=== PATIENT | female | born 1970 | race Caucasian/White ===

== ENCOUNTER 2018-08-08 09:48 | Emergency (ER) | payer OTHER ==
[2018-08-08 11:05] LABS: BASO % 0.4 % (0.0-1.0); EOS % 0.7 % (0.0-3.0); HEMATOCRIT 38.2 % (36.0-47.0); HEMOGLOBIN 12.9 g/dl (12.0-15.5); IMMATURE GRANULOCYTE % 0.4 % (0-3.0); LYMPH # 0.7 10^3/uL (1.5-4.5); LYMPH % 15.2 % (24.0-44.0); MEAN CORPUSCULAR HEMOGLOBIN 30.4 pg (27.0-33.0); MEAN CORPUSCULAR HGB CONC 33.8 g/dl (32.0-36.5); MEAN CORPUSCULAR VOLUME 89.9 fl (80.0-96.0); MONO # 0.4 10^3/uL (0.0-0.8); MONO % 9.7 % (0.0-5.0); NEUTROPHILS # 3.3 10^3/uL (1.8-7.7); NEUTROPHILS % 73.6 % (36.0-66.0); PLATELET COUNT, AUTOMATED 288 10^3/uL (150-450); RED BLOOD COUNT 4.25 10^6/uL (4.00-5.40); RED CELL DISTRIBUTION WIDTH 12.1 % (11.5-14.5); WHITE BLOOD COUNT 4.5 10^3/uL (4.0-10.0)
[2018-08-08 11:14] LABS: INR 0.97; PARTIAL THROMBOPLASTIN TIME 27.4 SECONDS (25.4-37.6)
[2018-08-08 11:22] LABS: D-DIMER QUANT < 270.0 ng/ml (<500)
[2018-08-08 11:32] LABS: ALBUMIN 3.7 GM/DL (3.2-5.2); ALBUMIN/GLOBULIN RATIO 1.23 (1.00-1.93); ALKALINE PHOSPHATASE 71 U/L (45-117); ALT/SGPT 21 U/L (12-78); ANION GAP 7 MEQ/L (8-16); AST/SGOT 12 U/L (7-37); BILIRUBIN,DIRECT < 0.1 MG/DL (0.0-0.2); BILIRUBIN,TOTAL 0.2 MG/DL (0.2-1.0); BLOOD UREA NITROGEN 20 MG/DL (7-18); CARBON DIOXIDE LEVEL 26 MEQ/L (21-32); CHLORIDE LEVEL 106 MEQ/L (98-107); CK-MB VALUE MASS < 1.0 NG/ML (<3.6); CPK CREATINE PHOSPHOKINASE 57 U/L (26-192); CREATININE FOR GFR 0.76 MG/DL (0.55-1.30); FREE T4 1.24 NG/DL (0.76-1.46); GLOMERULAR FILTRATION RATE > 60.0 (>58); GLUCOSE, FASTING 107 MG/DL (70-100); LIPASE 146 U/L (73-393); MAGNESIUM LEVEL 2.1 MG/DL (1.8-2.4); MB/CK RELATIVE INDEX 1.75 (< OR =4); POTASSIUM SERUM 4.1 MEQ/L (3.5-5.1); SODIUM LEVEL 139 MEQ/L (136-145); THYROID STIMULATING HORMONE 0.956 uIU/ML (0.358-3.740); TOTAL PROTEIN 6.7 GM/DL (6.4-8.2); TROPONIN I < 0.02 NG/ML (< 0.10)
[2018-08-08] MEDS: NS 1,000 ML IV (11:52)
[2018-08-12 00:07] LABS: LAMOTRIGINE (LAMICTAL) 1.8 ug/mL (2.0-20.0)
== END 2018-08-08 13:15 | disposition home or self-care (01) ==
LOC: M ED 09:48
DX: R00.2 Palpitations (principal)
CPT/HCPCS: 71045

== ENCOUNTER 2018-09-15 00:24 | Emergency (ER) | payer OTHER ==
[2018-09-15] MEDS: MORPHINE 10 MG/ML 1ML VIAL (J2270) IM (00:45)
[2018-09-15] MEDS: fentaNYL 100 MCG/2 ML INJECTION (J3010) IV (01:15)
[2018-09-15] MEDS: NORCO 5/325MG TABLET (BULK FOR ED) PO (02:30)
== END 2018-09-15 02:37 | disposition home or self-care (01) ==
LOC: M ED 00:24
DX: S92.351A Displaced fracture of fifth metatarsal bone, right foot, initial encounter for closed fracture (principal); W10.9XXA Fall (on) (from) unspecified stairs and steps, initial encounter; Y92.099 Unspecified place in other non-institutional residence as the place of occurrence of the external cause; Y93.9 Activity, unspecified; Y99.9 Unspecified external cause status; R51 Headache; K58.9 Irritable bowel syndrome, unspecified; D64.9 Anemia, unspecified; Z79.899 Other long term (current) drug therapy; Z88.6 Allergy status to analgesic agent; Z88.5 Allergy status to narcotic agent
CPT/HCPCS: J3010

== ENCOUNTER 2018-09-18 09:32 | Emergency (ER) | payer OTHER ==
[2018-09-18 10:32] LABS: KETONE, URINE AUTO RFX NEGATIVE (NEGATIVE); LEUKOCYTE ESTERASE UR AUTO RFX NEGATIVE (NEGATIVE); MUCUS, URINE RFX SMALL (NEGATIVE); NITRITE, URINE AUTO RFX NEGATIVE (NEGATIVE); RBC, URINE AUTO RFX 1 /HPF (0-3); SPECIFIC GRAVITY UR AUTO RFX 1.019 (1.002-1.035); SQUAM EPITHELIAL CELL UR AURFX 2 /HPF (0-6); WBC, URINE AUTO RFX 4 /HPF (0-3)
== END 2018-09-18 10:55 | disposition home or self-care (01) ==
LOC: M ED 09:32
DX: S83.411A Sprain of medial collateral ligament of right knee, initial encounter (principal); R35.0 Frequency of micturition; X58.XXXA Exposure to other specified factors, initial encounter; Y92.9 Unspecified place or not applicable; Y93.9 Activity, unspecified; Y99.9 Unspecified external cause status; Z79.899 Other long term (current) drug therapy; Z88.6 Allergy status to analgesic agent; Z88.5 Allergy status to narcotic agent
CPT/HCPCS: 81001

== ENCOUNTER 2018-10-13 10:44 | Emergency (ER) | payer OTHER ==
[~2018-10-13] VITALS: Ht 165.1 cm; Wt 65.9 kg
[~2018-10-13 10:44] MED LIST changes: -LOES1TAB7 PO; -ONDA4TAB6 PO
[2018-10-13] MEDS ORDERED: LOES1TAB7 PO (11:04)
[2018-10-13 11:21] LABS: BASO % 0.2 % (0.0-1.0); EOS % 0.2 % (0.0-3.0); HEMATOCRIT 40.6 % (36.0-47.0); HEMOGLOBIN 13.5 g/dl (12.0-15.5); LYMPH # 0.6 10^3/uL (1.5-4.5); LYMPH % 10.1 % (24.0-44.0); MEAN CORPUSCULAR HEMOGLOBIN 30.3 pg (27.0-33.0); MEAN CORPUSCULAR HGB CONC 33.3 g/dl (32.0-36.5); MONO # 0.4 10^3/uL (0.0-0.8); MONO % 6.5 % (0.0-5.0); NEUTROPHILS % 82.5 % (36.0-66.0); PLATELET COUNT, AUTOMATED 324 10^3/uL (150-450); RED BLOOD COUNT 4.46 10^6/uL (4.00-5.40)
[2018-10-13] MEDS ORDERED: ONDANSETRON 4MG/2ML VIAL (J2405) IV ONE (11:30)
[2018-10-13] MEDS ORDERED: NS 1,000 ML IV ONE (11:30)
[2018-10-13 11:56] LABS: BLOOD UREA NITROGEN 15 MG/DL (7-18); CARBON DIOXIDE LEVEL 25 MEQ/L (21-32); CHLORIDE LEVEL 103 MEQ/L (98-107); CK-MB VALUE MASS < 1.0 NG/ML (<3.6); CPK CREATINE PHOSPHOKINASE 37 U/L (26-192); CREATININE FOR GFR 0.73 MG/DL (0.55-1.30); GLOMERULAR FILTRATION RATE > 60.0 (>58); GLUCOSE, FASTING 96 MG/DL (70-100); POTASSIUM SERUM 4.3 MEQ/L (3.5-5.1); SODIUM LEVEL 138 MEQ/L (136-145); TROPONIN I < 0.02 NG/ML (< 0.10)
--- NOTE | 2018-10-13 12:17 | REP ---
Portable chest x-ray: Single view. History: Chest pain. Comparison study: August 08, 2018. Findings: EKG monitoring electrodes overlie the chest. The lungs are well inflated and clear. Pleural angles are sharp. Heart size is normal. No significant bony abnormality. Impression: Negative portable chest x-ray. Electronically Signed by Buster Asencio MD 10/13/2018 12:09 P
[2018-10-13 12:21] LABS: ALBUMIN 3.7 GM/DL (3.2-5.2); ALT/SGPT 32 U/L (12-78); BILIRUBIN,DIRECT < 0.1 MG/DL (0.0-0.2); BILIRUBIN,TOTAL 0.2 MG/DL (0.2-1.0); LIPASE 159 U/L (73-393); TOTAL PROTEIN 7.1 GM/DL (6.4-8.2)
[2018-10-13] MEDS ORDERED: METOCLOPRAMIDE INJ 10MG/2ML VIAL (J2765) IV ONE (13:15)
[2018-10-13 14:10] LABS: CK-MB VALUE MASS < 1.0 NG/ML (<3.6); CPK CREATINE PHOSPHOKINASE 35 U/L (26-192); MB/CK RELATIVE INDEX 2.86 (< OR =4); TROPONIN I < 0.02 NG/ML (< 0.10)
[2018-10-13] MEDS ORDERED: ONDA4TAB6 PO (14:14)
[2018-10-13 14:15] VITALS: BP 98/57
--- NOTE | 2018-10-13 20:04 | ECGEPIP ---
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
--- NOTE | 2018-10-13 20:11 | ECGEPIP ---
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 Order Number: [id number] Reading MD: Lizz West Measurements Intervals [place] Rate: 62 P: 47 TN: 148 QRS: 8 QRSD: 84 T: 28 QT: 424 QTc: 433 Interpretive Statements SINUS RHYTHM DELAYED R WAVE PROGRESSION NONSPECIFIC ST T WAVE CHANGES CW 10/13/18 RATE DECREASED Electronically Signed On 10-13-2018 20:11:25 EST by Lizz West
== END 2018-10-13 14:24 | disposition home or self-care (01) ==
LOC: M ED 10:44
DX: R11.2 Nausea with vomiting, unspecified (principal); R07.89 Other chest pain; I49.3 Ventricular premature depolarization; R56.9 Unspecified convulsions; D64.9 Anemia, unspecified; K21.9 Gastro-esophageal reflux disease without esophagitis; K58.9 Irritable bowel syndrome, unspecified; Z88.8 Allergy status to other drugs, medicaments and biological substances; Z88.5 Allergy status to narcotic agent; Z79.899 Other long term (current) drug therapy
CPT/HCPCS: 71045; 80048; 80076; 81001; 82550; 82553; 83690; 84484; 85025; 93005; 93041; 94760; 96374; 96375; 99285; J2405; J2765

== ENCOUNTER → 2018-10-13 | Outpatient (REF) | payer OTHER ==
[~2018-10-13] MED LIST: ATIV1TAB10 PO; CALC1TAB26 PO; FIORCAP3 PO; FLON1SPR NARES; LAMO10TA PO; LIAL1.2T PO; LOES1TAB7 PO; LOPR1TAB6 PO; MIDO2.5T PO; NORCOTAB PO; OMEP10CASR PO; ONDA4TAB6 PO; PAZE1DRO OD; PROG200C PO; RANI15TA PO; REFR0.5D8 OD; RITA5TAB PO; TIZA2CAP PO
[2018-10-13 13:34] LABS: APPEARANCE, URINE HAZY (CLEAR); BACTERIA, URINE AUTO 1+ (NEGATIVE); BILIRUBIN, URINE AUTO NEGATIVE (NEGATIVE); BLOOD, URINE BLOOD NEGATIVE (NEGATIVE); COLOR, URINE YELLOW (YELLOW); GLUCOSE, URINE (UA) AUTO NEGATIVE (NEGATIVE); KETONE, URINE AUTO NEGATIVE (NEGATIVE); LEUKOCYTE ESTERASE, URINE AUTO NEGATIVE (NEGATIVE); MUCUS, URINE SMALL (NEGATIVE); NITRITE, URINE AUTO NEGATIVE (NEGATIVE); PROTEIN, URINE AUTO NEGATIVE (NEGATIVE); RBC, URINE AUTO 1 /HPF (0-3); SPECIFIC GRAVITY URINE AUTO 1.025 (1.002-1.035); SQUAMOUS EPITHELIAL CELL UR AU 4 /HPF (0-6); UROBILINOGEN, URINE AUTO 0.2 mg/dL (0.0-2.0); WBC, URINE AUTO 1 /HPF (0-3)
== END ==
LOC: M SMT 13:09
PROVIDERS: ATTEND Nurse Practitioner Women's Health
DX: N39.0 Urinary tract infection, site not specified (principal)

== ENCOUNTER → 2018-10-15 | Outpatient (CLI) | payer OTHER ==
[~2018-10-15] MED LIST changes: +LOES1TAB7 PO; +ONDA4TAB6 PO
--- NOTE | 2018-10-16 05:44 | REP ---
Clinical: Frequent urinary tract infection. Technique: Real time romero scale and color ultrasound examination using curved array transducer. Findings: The bilateral kidneys are relatively normal in contour, size, and reniform shape without hydronephrosis, nephrolithiasis, cystic or renal mass lesion. Renal parenchymal echo texture may be subjectively echogenic raising the possibility of underlying medical renal disease. The bladder is normal in appearance without wall thickening or mass lesion and bilateral ureteral jets are noted. Prevoid bladder measures 250 ml. Postvoid bladder measures 5.5 ml. Postvoid residual equals 2%. Impression: Relatively normal examination. No hydronephrosis. Correlation with urinalysis may be warranted to exclude the possibility of underlying medical renal disease. Electronically Signed by Harris Jaramillo MD 10/16/2018 05:35 A
== END ==
LOC: M RAD 11:05
PROVIDERS: ATTEND Nurse Practitioner Women's Health
DX: N39.0 Urinary tract infection, site not specified (principal); Z87.442 Personal history of urinary calculi

== ENCOUNTER → 2019-01-23 | Outpatient (REF) | payer OTHER ==
[~2019-01-23] MED LIST changes: +HYDR-3715 PO; +LAMO100T80 PO; -LAMO10TA PO; -NORCOTAB PO
== END ==
LOC: M LAB REF 09:31
PROVIDERS: ATTEND Physician Assistant
DX: R30.0 Dysuria (principal)

== ENCOUNTER → 2019-05-04 | Outpatient (CLI) | payer OTHER ==
[~2019-05-04] MED LIST changes: +PROG1CAP9 PO; -PROG200C PO
[2019-05-05 10:59] LABS: RUBELLA IgG QUALITATIVE IMMUNE (IMMUNE)
[2019-05-06 08:19] LABS: MUMPS VIRUS IgG ANTIBODY 70.9 AU/mL (Immune >10.9); RUBEOLA IgG ANTIBODY <25.0 AU/mL (Immune >29.9)
== END ==
LOC: M WUC 15:32
PROVIDERS: ATTEND Physician Assistant
DX: Z02.1 Encounter for pre-employment examination (principal)

== ENCOUNTER → 2019-05-19 | Outpatient (CLI) | payer OTHER ==
--- NOTE | 2019-05-19 18:55 | REP ---
HISTORY: Pain after trauma. COMPARISON: None. FINDINGS: The compartments are symmetric and relatively well maintained. There is no acute fracture or destructive osseous lesion. Electronically Signed by Prashant Jones DO 05/20/2019 10:53 A
== END ==
LOC: M RAD 15:51
PROVIDERS: ATTEND Physician Assistant
DX: M25.561 Pain in right knee (principal)

== ENCOUNTER → 2019-06-09 | Outpatient (CLI) | payer OTHER ==
--- NOTE | 2019-06-10 09:59 | REPMRS ---
Patient History The patient states she has not had a clinical breast exam in over a year. Patient has history of endometrial cancer at age 29. Family history of uterine cancer in maternal grandmother. Taking hormonal contraceptives for 1 year. Bilateral breast reduction 2005. The [facility] lifetime risk for breast cancer is 8.7%. Digital Mammo Screening Bilat: June 09, 2019 - Exam #: [id number] Bilateral CC and MLO view(s) were taken. Technologist: Stephie Olivera, Technologist Prior study comparison: December 05, 2017, bilateral digital mammo screening bilat, performed at [place], [place]. FINDINGS: The breast tissue is heterogeneously dense. This may lower the sensitivity of mammography. There has been no change in the appearance of the mammogram from the prior studies. There is a moderate amount of residual fibroglandular tissue which is fairly symmetric. There is no interval development of dominant mass, areas of architectural distortion, or clustered microcalcification typical of malignancy. Assessment: BI-RADS/ACR category 1 mammogram. Negative Mammogram. Recommendation Routine screening mammogram in 1 year (for women over age 40). This mammogram was interpreted with the aid of an FDA-approved computer-aided dectection system. Electronically Signed By: Elia Everett MD 06/10/19 0909
== END ==
LOC: M RAD 10:13
PROVIDERS: ATTEND Student in an Organized Health Care Education/Training Program
DX: Z12.31 Encounter for screening mammogram for malignant neoplasm of breast (principal); Z85.44 Personal history of malignant neoplasm of other female genital organs; Z92.0 Personal history of contraception

== ENCOUNTER → 2019-06-15 | Outpatient (CLI) | payer OTHER ==
--- NOTE | 2019-06-16 03:05 | REP ---
Clinical: Open wound. Technique: AP, lateral, bilateral oblique views of the left fourth digit. Findings: Overlying bandage material limits evaluation of the soft tissues and laceration as well as subtle small amputation to the tip of the fourth digit is suggested. The osseous structures appear intact without associated injury. No obvious foreign body. Impression: Subtle laceration and amputation to the soft tissue tip of the fourth digit. No obvious osseous involvement. Electronically Signed by Harris Jaramillo MD 06/16/2019 02:56 A
== END ==
LOC: M WUC 09:13
PROVIDERS: ATTEND Physician Assistant
DX: S61.205A Unspecified open wound of left ring finger without damage to nail, initial encounter (principal); Y92.9 Unspecified place or not applicable; Y93.9 Activity, unspecified

== ENCOUNTER → 2019-06-30 | Outpatient (REF) | payer OTHER ==
[2019-06-30 22:38] LABS: APPEARANCE, URINE CLEAR (CLEAR); BACTERIA, URINE AUTO NEGATIVE (NEGATIVE); BILIRUBIN, URINE AUTO NEGATIVE (NEGATIVE); BLOOD, URINE BLOOD 1+ (NEGATIVE); COLOR, URINE YELLOW (YELLOW); GLUCOSE, URINE (UA) AUTO NEGATIVE (NEGATIVE); KETONE, URINE AUTO NEGATIVE (NEGATIVE); LEUKOCYTE ESTERASE, URINE AUTO NEGATIVE (NEGATIVE); MUCUS, URINE SMALL (NEGATIVE); NITRITE, URINE AUTO NEGATIVE (NEGATIVE); PROTEIN, URINE AUTO NEGATIVE (NEGATIVE); RBC, URINE AUTO 3 /HPF (0-3); SPECIFIC GRAVITY URINE AUTO 1.015 (1.002-1.035); SQUAMOUS EPITHELIAL CELL UR AU 1 /HPF (0-6); UROBILINOGEN, URINE AUTO 0.2 mg/dL (0.0-2.0); WBC, URINE AUTO 2 /HPF (0-3)
== END ==
LOC: M LAB REF 12:43
PROVIDERS: ATTEND Physician Assistant
DX: N39.0 Urinary tract infection, site not specified (principal)

== ENCOUNTER → 2019-10-09 | Outpatient (CLI) | payer OTHER ==
[2019-10-09 11:29] LABS: ALBUMIN 3.7 GM/DL (3.2-5.2); ALT/SGPT 31 U/L (12-78); BILIRUBIN,DIRECT 0.1 MG/DL (0.0-0.2); BILIRUBIN,TOTAL 0.4 MG/DL (0.2-1.0); BLOOD UREA NITROGEN 14 MG/DL (7-18); C REACTIVE PROTEIN QUANTITATIV < 0.30 MG/DL (0.00-0.30); CALCIUM LEVEL 8.6 MG/DL (8.5-10.1); CARBON DIOXIDE LEVEL 27 MEQ/L (21-32); CHLORIDE LEVEL 107 MEQ/L (98-107); FREE T4 1.06 NG/DL (0.76-1.46); GLOMERULAR FILTRATION RATE > 60.0 (>51); GLUCOSE, FASTING 60 MG/DL (70-100); SODIUM LEVEL 141 MEQ/L (136-145); THYROID STIMULATING HORMONE 0.665 uIU/ML (0.358-3.740); TOTAL PROTEIN 7.2 GM/DL (6.4-8.2)
[2019-10-11 12:53] LABS: HEPATITIS B SURFACE ANTIBODY NEGATIVE (POSITIVE)
[2019-10-11 13:04] LABS: HEPATITIS B SURFACE ANTIGEN NEGATIVE (NEGATIVE)
[2019-10-12 00:06] LABS: HBVCOREDIFF1 Negative (Negative); HBVCOREDIFF2 Negative (Negative); TISSUE TRANSGLUTAMINASE IgA <2 U/mL (0-3)
== END ==
LOC: M LAB 09:30
PROVIDERS: ATTEND Internal Medicine Gastroenterology
DX: R14.0 Abdominal distension (gaseous) (principal); R10.9 Unspecified abdominal pain; K51.90 Ulcerative colitis, unspecified, without complications; K21.9 Gastro-esophageal reflux disease without esophagitis

== ENCOUNTER → 2019-10-18 | Outpatient (CLI) | payer OTHER ==
--- NOTE | 2019-10-19 03:04 | REP ---
Clinical: Abdominal pain and bloating. Technique: Real time romero scale ultrasound examination using curved array transducer. Findings: Liver, spleen, and visualized pancreas are normal in contour, size, echogenicity without focal hepatic, splenic or pancreatic lesion identified. Gallbladder demonstrates mobile gallstones without wall thickening or pericholecystic fluid to suggest acute cholecystitis. No biliary ductal dilatation is appreciated and the common bile duct measures 5 mm diameter. The bilateral kidneys are normal in reniform shape without hydronephrosis. Right kidney measures 11.2 x 4.4 x 3.5 cm. Left kidney measures 10.2 x 4.4 x 4.4 cm. Abdominal aorta appears normal and measures 1.9 cm maximal diameter. No ascites. Impression: 1. Cholelithiasis. Electronically Signed by Harris Jaramillo MD 10/19/2019 02:55 A
== END ==
LOC: M RAD 09:05
PROVIDERS: ATTEND Internal Medicine Gastroenterology
DX: R14.0 Abdominal distension (gaseous) (principal); R10.9 Unspecified abdominal pain; K21.9 Gastro-esophageal reflux disease without esophagitis; K51.90 Ulcerative colitis, unspecified, without complications

== ENCOUNTER → 2019-10-21 | Outpatient (CLI) | payer OTHER ==
--- NOTE | 2019-10-21 11:51 | REP ---
Gastric emptying nuclear scintigraphy: History: Bloating symptoms. Abdomen pain. Technique: 1.04 mCi of technetium-99m sulfur colloid was ingested in two scrambled eggs and 6 ounces of water and sequential anterior and posterior images are acquired for an 89-minute imaging observation period. Regions of interest are drawn around the stomach to plot gastric emptying. Scintigraphic findings: Expected T1/2 is 90 minutes. 25 a % emptying is observed in this patient during the 89-minute imaging observation period, for a calculated T1/2 in this patient of 172 minutes. Impression: Delayed gastric emptying. Electronically Signed by Buster Asencio MD 10/21/2019 11:43 A
== END ==
LOC: M RAD 09:07
PROVIDERS: ATTEND Internal Medicine Gastroenterology
DX: R10.9 Unspecified abdominal pain (principal)
CPT/HCPCS: 78264; A9541

== ENCOUNTER → 2019-12-09 | Outpatient (CLI) | payer OTHER ==
--- NOTE | 2019-12-09 12:12 | REP ---
Hepatobiliary scan and gallbladder ejection fraction: History: Colitis and abdomen pain. Technique: 6.6 mCi of technetium-99m mebrofenin was injected and sequential anterior images are acquired. 65 minutes after the mebrofenin injection, the patient consumed 8 ounces Ensure and an additional 60 minutes of imaging was acquired. Regions of interest are plotted around the gallbladder. Findings: The initial hepatocellular parenchymal uptake phase is normal and homogeneous. Intra- and extra-hepatic bile ducts are labeled by the 10 -minute image. The gallbladder is first labeled on the 15 -minute image. There is normal washout from the liver parenchyma into the gallbladder and small intestine on subsequent images. The gallbladder ejection fraction is 61 %. Values greater than 35 % are considered normal with this technique. Impression: Normal hepatobiliary scan and normal gallbladder ejection fraction. Electronically Signed by Buster Asencio MD 12/09/2019 12:03 P
== END ==
LOC: M RAD 08:35
PROVIDERS: ATTEND Nurse Practitioner Family
DX: R10.9 Unspecified abdominal pain (principal); K51.90 Ulcerative colitis, unspecified, without complications
CPT/HCPCS: 78227; A9537

== ENCOUNTER → 2020-03-03 | Outpatient (REF) | payer OTHER | LOC: M LAB REF 14:37 | PROVIDERS: ATTEND Nurse Practitioner Family | DX: R19.7 Diarrhea, unspecified (principal) ==

== ENCOUNTER → 2020-03-23 | Outpatient (CLI) | payer OTHER ==
[~2020-03-23] MED LIST changes: +ASPI-255 PO; +ASPI-527; +CYCL5TAB PO; +DILA2TAB6 PO; +OMEP-221
[2020-03-23 13:18] LABS: HEMATOCRIT 38.6 % (36.0-47.0); HEMOGLOBIN 13.1 g/dl (12.0-15.5); MEAN CORPUSCULAR HEMOGLOBIN 31.6 pg (27.0-33.0); MEAN CORPUSCULAR HGB CONC 33.9 g/dl (32.0-36.5); MEAN CORPUSCULAR VOLUME 93.2 fl (80.0-96.0); PLATELET COUNT, AUTOMATED 275 10^3/uL (150-450); RED BLOOD COUNT 4.14 10^6/uL (4.00-5.40); WHITE BLOOD COUNT 4.3 10^3/uL (4.0-10.0)
[2020-03-23 13:44] LABS: BLOOD UREA NITROGEN 15 MG/DL (7-18); CALCIUM LEVEL 8.8 MG/DL (8.5-10.1); CARBON DIOXIDE LEVEL 29 MEQ/L (21-32); CHLORIDE LEVEL 107 MEQ/L (98-107); CREATININE FOR GFR 0.81 MG/DL (0.55-1.30); GLOMERULAR FILTRATION RATE > 60.0 (>51); GLUCOSE, FASTING 86 MG/DL (70-100); SODIUM LEVEL 143 MEQ/L (136-145)
== END ==
LOC: M LAB 12:09
PROVIDERS: ATTEND Internal Medicine Cardiovascular Disease
DX: R06.02 Shortness of breath (principal); I49.3 Ventricular premature depolarization

== ENCOUNTER 2020-04-05 20:54 | Emergency (ER) | payer OTHER ==
[~2020-04-05] VITALS: Ht 165.1 cm; Wt 70.4 kg
[~2020-04-05 20:54] MED LIST changes: -ASPI-255 PO; -ASPI-527; -CYCL5TAB PO; -DILA2TAB6 PO; -OMEP-221
[2020-04-05 21:50] LABS: BASO % 0.2 % (0.0-1.0); EOS # 0.1 10^3/uL (0.0-0.5); EOS % 0.9 % (0.0-3.0); HEMATOCRIT 37.5 % (36.0-47.0); HEMOGLOBIN 12.7 g/dl (12.0-15.5); LYMPH # 0.9 10^3/uL (1.5-5.0); LYMPH % 17.5 % (24.0-44.0); MEAN CORPUSCULAR HGB CONC 33.9 g/dl (32.0-36.5); MEAN CORPUSCULAR VOLUME 91.5 fl (80.0-96.0); MONO # 0.6 10^3/uL (0.0-0.8); MONO % 11.1 % (0.0-5.0); NEUTROPHILS # 3.7 10^3/uL (1.5-8.5); NEUTROPHILS % 69.9 % (36.0-66.0); PLATELET COUNT, AUTOMATED 244 10^3/uL (150-450); WHITE BLOOD COUNT 5.3 10^3/uL (4.0-10.0)
[2020-04-05 22:11] LABS: BLOOD UREA NITROGEN 20 MG/DL (7-18); CALCIUM LEVEL 8.9 MG/DL (8.5-10.1); CARBON DIOXIDE LEVEL 24 MEQ/L (21-32); CHLORIDE LEVEL 109 MEQ/L (98-107); CREATININE FOR GFR 0.93 MG/DL (0.55-1.30); GLOMERULAR FILTRATION RATE > 60.0 (>51); GLUCOSE, FASTING 78 MG/DL (70-100); POTASSIUM SERUM 3.9 MEQ/L (3.5-5.1); SODIUM LEVEL 140 MEQ/L (136-145)
[2020-04-05] MEDS ORDERED: ISOVUE-370 76% 100ML VIAL As Ordered ONE (22:23)
--- NOTE | 2020-04-05 22:50 | REPVR ---
PROCEDURE INFORMATION: Exam: CT Angiography Chest With Contrast Exam date and time: 04/05/2020 10:31 PM Age: 50 years old Clinical indication: Chest pain; Additional info: R/O pe, left chest pain TECHNIQUE: Imaging protocol: Computed tomographic angiography of the chest with intravenous contrast. 3D rendering: MIP and/or 3D reconstructed images were created by the technologist. Radiation optimization: All CT scans at this facility use at least one of these dose optimization techniques: automated exposure control; mA and/or kV adjustment per patient size (includes targeted exams where dose is matched to clinical indication); or iterative reconstruction. Contrast material: ISO 370; Contrast volume: 75 ml; Contrast route: INTRAVENOUS (IV); COMPARISON: CR PORTABLE CHEST X-RAY 04/05/2020 9:40 PM FINDINGS: Pulmonary arteries: No focal pulmonary artery filling defect to suggest acute pulmonary embolus. Aorta: No thoracic aortic aneurysm or dissection. Lungs: Pulmonary vascular/interstitial pattern does not suggest active pulmonary edema. No suspicious lung mass or air space process. No central endobronchial lesion. Pleural space: No pleural effusion or pneumothorax. Heart: No overt cardiac enlargement or abnormal volume of pericardial fluid. Lymph nodes: No enlarged mediastinal lymph nodes. No enlarged lymph nodes. Bones/joints: Bony structures show no acute fracture or destructive process. Soft tissues: No concerning focal abnormality of the extra-abdominal and pelvic soft tissues. IMPRESSION: 1. No evidence of acute pulmonary embolus. 2. No other acute or concerning focal intrathoracic abnormality. Electronically signed by: Santiago Carolina On 04/05/2020 22:49:36 PM
--- NOTE | 2020-04-06 00:44 | ECGEPIP ---
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
[2020-04-06] MEDS: NITROGLYCERIN 0.4 MG SUBL TABLET SL PRN ×2 (00:50→01:09)
--- NOTE | 2020-04-06 00:50 | ECGEPIP ---
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
[2020-04-06 01:04] LABS: INR 1.06; PROTHROMBIN TIME 13.5 SECONDS (11.8-14.0)
[2020-04-06 01:05] LABS: PARTIAL THROMBOPLASTIN TIME 29.2 SECONDS (25.0-38.4)
[2020-04-06] MEDS ORDERED: HEPARIN DRIP 25,000 UNITS in IV 1 EA IV SCH (01:09)
[2020-04-06] MEDS ORDERED: HEPARIN SOD (PORCINE) 5000UNITS/ML VIAL (J1644 PER 1000UNITS) IV ONE (01:15)
[2020-04-06] MEDS ORDERED: CLOPIDOGREL 75 MG TAB PO STA (01:51)
[2020-04-06] MEDS ORDERED: NITROGLYCERIN 2% OINT 1 GM *U/D* PKT TOP ONE (02:00)
[2020-04-06 04:00] VITALS: BP 120/73
--- NOTE | 2020-04-06 08:42 | REP ---
REASON FOR EXAM: Chest pain. FINDINGS: The technique utilized in obtaining the radiograph has magnified the cardiac silhouette and accentuated the interstitial markings. The superior mediastinal structures are midline. The cardiac silhouette is unremarkable in size, shape, and position. The diaphragmatic surfaces of the lungs are regular, and the costophrenic angles are clear. The pulmonary archuleta are clear. The imaged osseous structures are intact. IMPRESSION: There is no acute cardiopulmonary disease. Electronically Signed by Prashant Jones DO 04/06/2020 04:52 P
== END 2020-04-06 04:42 | disposition short-term general hospital (02) ==
LOC: M ED 20:54
DX: I21.4 Non-ST elevation (NSTEMI) myocardial infarction (principal); I20.0 Unstable angina; Z79.82 Long term (current) use of aspirin; Z79.01 Long term (current) use of anticoagulants; Z79.899 Other long term (current) drug therapy; Z88.6 Allergy status to analgesic agent; Z88.5 Allergy status to narcotic agent
CPT/HCPCS: 71045; 71275; 80048; 84484; 85025; 85610; 85730; 93005; 93041; 94760; 99285; J1644; Q9967; U0002

== ENCOUNTER 2020-04-09 11:25 | Emergency (ER) | payer OTHER ==
[~2020-04-09] VITALS: Ht 165.1 cm; Wt 70.5 kg
[2020-04-09] MEDS ORDERED: OMEP-221 PO (11:34)
[2020-04-09] MEDS ORDERED: CYCL5TAB PO (11:52)
[2020-04-09] MEDS ORDERED: GABAPENTIN 300 MG CAP PO ONE (12:00)
[2020-04-09 12:13] LABS: BASO % 0.4 % (0.0-1.0); EOS % 0.5 % (0.0-3.0); HEMATOCRIT 41.2 % (36.0-47.0); HEMOGLOBIN 13.9 g/dl (12.0-15.5); LYMPH # 0.6 10^3/uL (1.5-5.0); LYMPH % 10.6 % (24.0-44.0); MEAN CORPUSCULAR HGB CONC 33.7 g/dl (32.0-36.5); MONO # 0.4 10^3/uL (0.0-0.8); MONO % 7.7 % (0.0-5.0); NEUTROPHILS # 4.5 10^3/uL (1.5-8.5); NEUTROPHILS % 80.4 % (36.0-66.0); PLATELET COUNT, AUTOMATED 275 10^3/uL (150-450); RED BLOOD COUNT 4.48 10^6/uL (4.00-5.40); WHITE BLOOD COUNT 5.6 10^3/uL (4.0-10.0)
[2020-04-09] MEDS ORDERED: MORPHINE 4 MG/ML 1ML VIAL/SYRINGE (J2270) IV ONE (13:30)
[2020-04-09 14:10] LABS: PROTHROMBIN TIME 12.9 SECONDS (11.8-14.0)
[2020-04-09 14:11] LABS: PARTIAL THROMBOPLASTIN TIME 29.2 SECONDS (25.0-38.4)
[2020-04-09] MEDS ORDERED: HYDROmorphone 2 MG TAB PO ONE (15:00)
[2020-04-09] MEDS ORDERED: ASPIRIN ENTERIC 325 MG TAB PO STA (15:04)
[2020-04-09] MEDS ORDERED: DILA2TAB6 PO (15:14)
[2020-04-09] MEDS ORDERED: ASPI-255 PO (15:14)
[2020-04-09 16:05] VITALS: BP 142/65
--- NOTE | 2020-04-10 00:24 | REP ---
RIGHT UPPER EXTREMITY ARTERIAL DOPPLER ULTRASOUND, 04/09/2020. CLINICAL HISTORY: Weak pulse at the right wrist, pain status post right wrist angiogram. She did have a CT angiogram of the chest 04/05/2020 with left upper extremity injection on those images. FINDINGS: No prior study. Standard duplex techniques were utilized. Velocities are as follows: Right common carotid: 76.8 cm/s, triphasic.Right subclavian: 77.6 cm/s, triphasic.Right axillary: 73.7 cm/s, triphasic.Right brachial proximal: 127 cm/s, triphasic.Right brachial mid: 125 cm/s, triphasic.Right brachial distal: 88.6 cm/s, triphasic.Right radial: Occlusion proximal to distal.Right ulnar proximal: 99.6 cm/s, triphasic.Right ulnar distal: 84.7 cm/s, triphasic. IMPRESSION: 1. Occlusion of the right radial artery from proximal to distal with no color flow or Doppler findings. 2. Doppler of the right common carotid artery through the right brachial artery distally is normal. Normal velocity, color flow, and caliber. 3. The right ulnar artery is also intact along its entire course by color flow, velocity, and caliber. Electronically Signed by Blayne Andres MD 04/10/2020 08:37 A
== END 2020-04-09 16:07 | disposition home or self-care (01) ==
LOC: M ED 11:25
DX: I74.2 Embolism and thrombosis of arteries of the upper extremities (principal); Z87.891 Personal history of nicotine dependence; Z79.82 Long term (current) use of aspirin; Z79.01 Long term (current) use of anticoagulants; Z79.899 Other long term (current) drug therapy; Z88.6 Allergy status to analgesic agent; Z88.5 Allergy status to narcotic agent
CPT/HCPCS: 80047; 85025; 85610; 85730; 93931; 96365; 96374; 99284; J2270; U0002

== ENCOUNTER 2020-04-10 23:50 | Emergency (ER) | payer OTHER ==
[~2020-04-10] VITALS: Ht 165.1 cm; Wt 70.9 kg
[~2020-04-10 23:50] MED LIST changes: +ASPI-255 PO; +CYCL5TAB PO; +DILA2TAB6 PO; +OMEP-221 PO
[2020-04-11] MEDS ORDERED: ASPI-527 (00:03)
[2020-04-11] MEDS ORDERED: ONDANSETRON 4MG/2ML VIAL IV ONE (01:00)
[2020-04-11] MEDS ORDERED: ISOVUE-370 76% 100ML VIAL As Ordered ONE (01:17)
[2020-04-11] MEDS: HYDROMORPHONE HCL 0.5 MG/ 0.5 ML SYRINGE (J1170 PER 1) IV PRN ×2 (01:20→02:14)
[2020-04-11 01:26] VITALS: BP 146/88
[2020-04-11 01:52] LABS: INR 1.01
[2020-04-11 01:53] LABS: PARTIAL THROMBOPLASTIN TIME 28.1 SECONDS (25.0-38.4)
--- NOTE | 2020-04-11 02:09 | REPVR ---
PROCEDURE INFORMATION: Exam: US Duplex Right Upper Extremity Veins, Limited Exam date and time: 04/11/2020 1:55 AM Age: 50 years old Clinical indication: Pain; Swelling (edema) of limb; Upper extremity, right; Arm, upper and arm, lower; Prior surgery; Surgery date: 3-7 days post-operative; Surgery type: Cardiac cath done through her wrist; Additional info: Right arm pain/swelling TECHNIQUE: Imaging protocol: Real-time Duplex ultrasound of the Right Upper Extremity with 2-D romero scale, color Doppler flow and spectral waveform analysis with image documentation. Limited exam focused on the right upper extremity veins. COMPARISON: No relevant prior studies available. FINDINGS: Right deep veins: Unremarkable. Axillary and brachial veins are patent throughout without thrombus. Normal Doppler waveforms. Normal compressibility and/or augmentation response. Visualized internal jugular and subclavian veins are patent. Right superficial veins: Unremarkable. Visualized cephalic and basilic veins are patent without thrombus. Soft tissues: Unremarkable. IMPRESSION: No evidence of DVT. Electronically signed by: Christie Dyer On 04/11/2020 02:09:37 AM
--- NOTE | 2020-04-11 02:36 | REPVR ---
PROCEDURE INFORMATION: Exam: CTA Right Upper Extremity With Contrast Exam date and time: 04/11/2020 12:48 AM Age: 50 years old Clinical indication: Other: Weak pulse right arm; Additional info: Right arm pain and swelling, dx yesterday with rad occlusion TECHNIQUE: Imaging protocol: Computed tomographic angiography of the Right upper extremity with intravenous contrast material, including non-contrast images if performed. 3D rendering: MIP and/or 3D reconstructed images were created by the technologist. Radiation optimization: All CT scans at this facility use at least one of these dose optimization techniques: automated exposure control; mA and/or kV adjustment per patient size (includes targeted exams where dose is matched to clinical indication); or iterative reconstruction. Contrast material: ISO; Contrast volume: 75 ml; Contrast route: INTRAVENOUS (IV); COMPARISON: CT ANGIO CHEST 04/05/2020 10:25 PM FINDINGS: Limitations: Examination is limited by motion artifact. Right subclavian artery: No acute findings. No occlusion or significant stenosis. Right axillary artery: No acute findings. No occlusion or significant stenosis. Right brachial artery: No acute findings. No occlusion or significant stenosis. Decreased focal opacification of the proximal common interosseous artery. Right radial artery: Occlusion of the proximal right radial artery just distal to the origin. Right ulnar artery: No acute findings. No occlusion or significant stenosis. Soft tissues: Unremarkable. Other findings: . IMPRESSION: 1. Limited evaluation. 2. Occlusion of the proximal right radial artery just distal to the origin. 3. Decreased focal opacification of the proximal common interosseous artery. Motion artifact versus partial occlusion. 4. Right ulnar artery is patent. Electronically signed by: Christie Dyer On 04/11/2020 02:36:47 AM
--- NOTE | 2020-04-11 13:04 | ED PDOC ---
Post-Departure Follow-Up ft izzy [facility] and [facility] faxed formal report of cta upper extremi tiy for fu Lizz Inman MD Apr 11, 2020 13:04
== END 2020-04-11 03:45 | disposition home or self-care (01) ==
LOC: M ED 23:50
DX: I74.2 Embolism and thrombosis of arteries of the upper extremities (principal); I25.10 Atherosclerotic heart disease of native coronary artery without angina pectoris; G43.909 Migraine, unspecified, not intractable, without status migrainosus; M79.7 Fibromyalgia; Z87.891 Personal history of nicotine dependence; Z79.82 Long term (current) use of aspirin; Z79.01 Long term (current) use of anticoagulants; Z79.899 Other long term (current) drug therapy; Z88.6 Allergy status to analgesic agent; Z88.5 Allergy status to narcotic agent
CPT/HCPCS: 73206; 80047; 83605; 85610; 85730; 93971; 96374; 96375; 96376; 99284; J1170; J2405; Q9967

== ENCOUNTER 2020-04-16 14:38 | Inpatient (IN) | payer OTHER ==
[~2020-04-16] VITALS: Ht 165.1 cm; Wt 69.6 kg
[~2020-04-16 14:38] MED LIST changes: +ASPI-527
[2020-04-16 15:10] LABS: BASO % 0.5 % (0.0-1.0); EOS # 0.1 10^3/uL (0.0-0.5); EOS % 1.8 % (0.0-3.0); HEMATOCRIT 42.3 % (36.0-47.0); HEMOGLOBIN 14.3 g/dl (12.0-15.5); LYMPH # 0.9 10^3/uL (1.5-5.0); LYMPH % 22.6 % (24.0-44.0); MEAN CORPUSCULAR HEMOGLOBIN 31.1 pg (27.0-33.0); MEAN CORPUSCULAR HGB CONC 33.8 g/dl (32.0-36.5); MONO # 0.5 10^3/uL (0.0-0.8); MONO % 12.3 % (0.0-5.0); NEUTROPHILS # 2.5 10^3/uL (1.5-8.5); PLATELET COUNT, AUTOMATED 345 10^3/uL (150-450)
[2020-04-16] MEDS ORDERED: ALIG4CAP PO (15:11)
[2020-04-16] MEDS ORDERED: EMGA120I SC (15:11)
[2020-04-16] MEDS ORDERED: HYDR-3713 PO (15:11)
[2020-04-16] MEDS ORDERED: LOVA1CAP17 PO (15:11)
[2020-04-16] MEDS ORDERED: DICY20TA11 PO (15:11)
[2020-04-16] MEDS ORDERED: CART180C3 PO (15:11)
[2020-04-16] MEDS ORDERED: XARE20TA PO (15:11)
[2020-04-16] MEDS ORDERED: CLAR10CA3 PO (15:11)
[2020-04-16 15:50] LABS: BLOOD UREA NITROGEN 18 MG/DL (7-18); C REACTIVE PROTEIN QUANTITATIV < 0.30 MG/DL (0.00-0.30); CALCIUM LEVEL 9.1 MG/DL (8.5-10.1); CARBON DIOXIDE LEVEL 28 MEQ/L (21-32); CHLORIDE LEVEL 105 MEQ/L (98-107); CREATININE FOR GFR 0.97 MG/DL (0.55-1.30); GLOMERULAR FILTRATION RATE > 60.0 (>51); GLUCOSE, FASTING 87 MG/DL (70-100); NT-PRO BNP 93 PG/ML (<125); POTASSIUM SERUM 4.2 MEQ/L (3.5-5.1); SODIUM LEVEL 139 MEQ/L (136-145)
[2020-04-16 15:54] LABS: ERYTHROCYTE SEDIMENTATION RATE 7 mm/hr (0-30)
[2020-04-16] MEDS ORDERED: ISOVUE-370 76% 100ML VIAL As Ordered ONE (18:03)
--- NOTE | 2020-04-16 19:05 | REPVR ---
PROCEDURE INFORMATION: Exam: CT Angiography Chest With Contrast Exam date and time: 04/16/2020 5:41 PM Age: 50 years old Clinical indication: Shortness of breath TECHNIQUE: Imaging protocol: Computed tomographic angiography of the chest with intravenous contrast. 3D rendering: MIP and/or 3D reconstructed images were created by the technologist. Radiation optimization: All CT scans at this facility use at least one of these dose optimization techniques: automated exposure control; mA and/or kV adjustment per patient size (includes targeted exams where dose is matched to clinical indication); or iterative reconstruction. Contrast material: ISOVUE 370; Contrast volume: 75 ml; Contrast route: INTRAVENOUS (IV); COMPARISON: CT ANGIO CHEST 04/05/2020 10:25 PM FINDINGS: Pulmonary arteries: No pulmonary embolism. Aorta: The thoracic aorta is intact and patent. There is no thoracic aortic aneurysm, pseudoaneurysm, penetrating atherosclerotic ulcer, intramural hematoma, or dissection. Tracheobronchial tree: Intact and patent. Lungs: The lungs are clear. There is no lung consolidation, pulmonary infarct, or mass. No emphysematous changes or interstitial lung disease is noted. Pleural space: Normal. No pneumothorax or pleural effusion. Heart: No cardiomegaly. No pericardial effusion. The ratio of the diameter of the right ventricle to the diameter of the left ventricle measures less than 1, which is within normal limits and there is no evidence for a right ventricular strain. Mediastinal space: No mediastinal mass, fluid collection, or pneumomediastinum. Lymph nodes: No enlarged lymph nodes. Diaphragm: Intact. Adrenals: Normal. No adrenal mass is noted. Bones/joints: There is no fracture or dislocation. No suspicious osteolytic or osteoblastic lesion. Soft tissues: Unremarkable. No soft tissue fluid collection. IMPRESSION: No acute findings in the chest. No pulmonary embolism. Electronically signed by: Josue Delgado On 04/16/2020 19:04:50 PM
--- NOTE | 2020-04-16 19:16 | ECGEPIP ---
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
--- NOTE | 2020-04-16 19:20 | ECGEPIP ---
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
[2020-04-16 20:06] LABS: CK-MB VALUE MASS < 1.0 NG/ML (<3.6); CPK CREATINE PHOSPHOKINASE 29 U/L (26-192); MB/CK RELATIVE INDEX 3.45 (< OR =4); TROPONIN I < 0.02 NG/ML (< 0.10)
[2020-04-16] MEDS ORDERED: ISOSORBIDE MON. (IMDUR) 30 MG XR TAB PO ONE (20:15)
[2020-04-16] MEDS ORDERED: ACETAMINOPHEN TAB 650MG DOSE (2X325MG) PO PRN (20:15)
[2020-04-16] MEDS ORDERED: XARE15TA PO (20:29)
[2020-04-16] MEDS ORDERED: VITATAB73 PO (20:33)
[2020-04-16] MEDS ORDERED: ASPI-1 PO (20:33)
[2020-04-16] MEDS ORDERED: LORazepam 0.5 MG TAB PO PRN (20:45)
[2020-04-16] MEDS ORDERED: CYCLOBENZAPRINE 5MG TABLET PO PRN (20:45)
[2020-04-16] MEDS: MESALAMINE 1,000 MG SUPP PR SCH (21:00)
[2020-04-16] MEDS ORDERED: LORATADINE 10 MG TAB PO SCH ×2 (21:00)
--- NOTE | 2020-04-16 21:32 | HPEPDOC ---
General Date of Admission 04/16/2020 Date of Service: Apr 16, 2020 Chief Complaint The patient is a 50-year-old female Who presented to the hospital with complaints of chest pain History of Present Illness Patient is a 50-year-old female with a PMHx of Prenzmetals Angina, Epilepsy, Ulcerative colitis, Gastroparesis, Fibromyalgia, GERD, who presented to the emergency room with complaints of chest pain. Patient reports that on 04/05. She presented to the hospital with complaints of chest pain and was transferred to [facility] where she had received a cardiac catheterization. After the cardiac cath, she was noted to have normal coronary arteries and did not receive any stents. She was subsequently discharged home on 04/06. Patient presented to the hospital again on 04/09, 04/10 for right wrist pain and was given pain medications and subsequently advised to follow-up with [facility]. Patient presented to [facility] on 714 emergency room and was noted to have an occlusion of her right radial artery, requiring repair. After that point, patient was told that she had a spasm of her right radial artery and that her chest pain was likely from Prinzmetals angina. Patient was discharged home with a relative and started on a calcium channel michaelle. Today patient presented to the emergency room with complaints of chest pain that occurred in center of her chest, described as a 5/10, pressure-like intensity occurring intermittently. Patient noted that the pain radiated to the left neck aggravated with exertion, without any alleviating factors. She noted that this started at about 10 AM and occurred intermittently until 2 PM on arrival to emergency room. . She did report associated diaphoresis. Denied any nausea or vomiting. Patient denies any abdominal pain, discomfort with urination. Reports some constipation. Has not expense any fevers or chills. Patient reports her appetite is poor and has lost a few pounds over the last couple of weeks. Home Medications Scheduled Aspirin (Aspirin) 325 Mg Tablet, 325 MG PO DAILY, (Reported) Bifidobacterium Infantis (Align) 4 Mg Capsule, 4 MG PO QHS, (Reported) Calcium Carbonate/Vitamin D3 (Calcium 600-Vit D3 800 Tablet) 1 Tab Tab, 1 TAB PO BID, (Reported) Carboxymethylcellulose Sodium (Refresh Tears) 0.5 % Fly, 1 DROP OD TID, (Reported) Diltiazem HCl (Cartia Xt) 180 Mg Cap.er.24h, 180 MG PO DAILY, (Reported) Fluticasone Propionate (Flonase Allergy Relief) 50 Mcg/Act Spr, 2 SPRAY NARES DAILY, (Reported) Galcanezumab-Gnlm (Emgality Pen) 120 Mg/1 Ml Pen.injctr, 120 MG SC MTHLY, (Reported) 18TH OF THE MONTH Lamotrigine (Lamotrigine) 100 Mg Tab, 100 MG PO BID, (Reported) Loratadine (Claritin) 10 Mg Capsule, 10 MG PO QPM for allergy symptoms, (Reported) Mesalamine (Lialda) 1.2 Gm Tab, 2.4 GRAMS PO BID, (Reported) Metoprolol Tartrate (Lopressor) 50 Mg Tab, 25 MG PO BID, (Reported) [place]-3 Acid Ethyl Esters (Lovaza) 1 Gm Capsule, 2 GRAMS PO DAILY, (Reported) Omeprazole (Omeprazole) 40 Mg Capsule.dr, 40 MG PO DAILY, (Reported) Rivaroxaban (Xarelto) 15 Mg Tablet, 15 MG PO BID, (Reported) Vitamin B Complex (Vitamin B Complex) 1 Each Tablet, 1 TAB PO DAILY, (Reported) Scheduled PRN Butalbital/Aspirin/Caffeine (Fiorinal 50-325-40 mg Capsule) 1 Cap Cap, 1 CAP PO Q6HP PRN for pain, (Reported) Cyclobenzaprine HCl (Cyclobenzaprine HCl) 5 Mg Tablet, 5 MG PO TID PRN for muscle spasms, (Reported) Dicyclomine HCl (Dicyclomine HCl) 20 Mg Tablet, 20 MG PO DAILY PRN for DIARRHEA, (Reported) Hydrocodone/Acetaminophen (Hydrocodone-Acetamin 5-325 mg) 1 Each Tablet, 1 TAB PO Q4H PRN for PAIN, (Reported) Lorazepam (Ativan) 0.5 Mg Tab, 5 MG PO BID PRN for anxiety, (Reported) Allergies Coded Allergies: acetaminophen (Verified Allergy, Unknown, 04/05/20) codeine (Verified Allergy, Unknown, 04/05/20) oxycodone (Verified Allergy, Unknown, 04/05/20) Past Medical History Medical History Prenzmetals Angina, Epilepsy, Ulcerative colitis, Gastroparesis, Fibromyalgia, GERD, Surgical History Right radial artery repair Breast reduction Bunionectomy Toe straightening surgery 2 LEEP procedure for cancer Family History - Extensive family history of coronary artery disease Social History - Denies the use of alcohol or illicit drugs; patient quit smoking 20 years ago - Denies recent travel or sick contacts - Lives with - 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; 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 Review of Systems Other systems 10 point review of systems complete, all negative otherwise stated in HPI Vital Signs - Vitals: BP [127/60], HR [80], RR [18], Sat [987%RA], Temp [98.0F] - General: Lying in bed, No acute distress, Speaking in full sentences, AAOx3 - HEENT: NC, AT, PERRLA - CVS: RRR, +S1S2 - Lungs: Fair air entry bilaterally, No appreciable wheezing / rales / rhonchi - Abdomen: Soft, Non-distended, Non-tender - Extremities: No lower extremity edema, No calf tenderness, R wrist with sutures noted - Neuro: No focal motor or sensory deficit - Skin: No visible rashes Laboratory Data Labs 24H Laboratory Tests 2 04/16/20 14:58: POC Troponin I (Misc) 0.00 04/16/20 14:59: Immature Granulocyte % (Auto) 0.8, Neutrophils (%) (Auto) 62.0, Lymphocytes (%) (Auto) 22.6L, Monocytes (%) (Auto) 12.3H, Eosinophils (%) (Auto) 1.8, Basophils (%) (Auto) 0.5, Neutrophils # (Auto) 2.5, Lymphocytes # (Auto) 0.9L, Monocytes # (Auto) 0.5, Eosinophils # (Auto) 0.1, Basophils # (Auto) 0.0, Nucleated Red Blood Cells % (auto) 0.0, Erythrocyte Sedimentation Rate 7, Anion Gap 6L, Glomerular Filtration Rate > 60.0, Calcium Level 9.1, Total Creatine Kinase 29, Creatine Kinase MB < 1.0, Creatine Kinase MB Relative Index 3.45, Troponin I < 0.02, C-Reactive Protein, Quantitative < 0.30, AP-Kln-K-Type Natriuretic Peptide 93 04/16/20 17:16: POC Troponin I (Misc) 0.02 CBC/BMP Laboratory Tests 04/16/20 14:59 Plan / VTE VTE Prophylaxis Ordered?: Yes Plan Plan Chest pain - possibly 2/2 prinzmetal angina, less likely 2/2 CAD - Patient presented to the emergency room with complaints of chest pain described in the typical nature - Currently patient reports her chest pain has resolved - Physical is unrevealing / shes hemodynamic stable - Troponin x 2 sets negative; will continue to trend - EKG reviewed - CTA chest 04/16: No acute findings in the chest. No pulmonary embolism. - Will check ECHO / telemetry monitoring / PCU / Cardiac risk - Discussed case with cardiology, who will also be on consultation, Dr. Altamirano - c/w ASA - Will adjust patients calcium channel blockers to short acting with increased dose; hold metoprolol - Will also provide patient with a single dose of Imdur R wrist radial artery surgery - s/p vascular repair 04/11 at [facility] - c/w Xaretlo Epilepsy - c/w Lamotrigine Ulcerative colitis - c/w Mesalamine Gastroparesis - Currently not on medications Fibromyalgia / Anxiety - c/w Lorazepam PRN GERD - c/w Omeprazole DVT prophylaxis - Will c/w full anticoagulation with ESTHER Frey MD Apr 16, 2020 21:32
[2020-04-16] MEDS: RIVAROXABAN 15 MG TAB (XARELTO) PO SCH (22:08)
[2020-04-16] MEDS: NORCO, ANEXSIA 5/325MG TABLET (HYDROcodone/ACETAMINOPHEN) PO PRN (22:08)
[2020-04-16] MEDS: lamoTRIgine 100MG TAB PO SCH (22:09)
[2020-04-16 23:00] LABS: CHOLESTEROL LEVEL 242 MG/DL (<200); CHOLESTEROL RISK RATIO 4.653 (<5); CK-MB VALUE MASS < 1.0 NG/ML (<3.6); CPK CREATINE PHOSPHOKINASE 21 U/L (26-192); HDL CHOLESTEROL 52 MG/DL (>40); LDL CHOLESTEROL 131 MG/DL (<100); MB/CK RELATIVE INDEX 4.76 (< OR =4); NON-HDL-C 190 MG/DL; TRIGLYCERIDES LEVEL 296 MG/DL (<150); TROPONIN I < 0.02 NG/ML (< 0.10)
[2020-04-17 03:49] VITALS: BP 124/57
[2020-04-17] MEDS: NORCO, ANEXSIA 5/325MG TABLET (HYDROcodone/ACETAMINOPHEN) PO PRN (03:53)
[2020-04-17 04:22] LABS: BASO % 0.5 % (0.0-1.0); EOS # 0.1 10^3/uL (0.0-0.5); EOS % 1.8 % (0.0-3.0); HEMATOCRIT 40.1 % (36.0-47.0); HEMOGLOBIN 13.4 g/dl (12.0-15.5); LYMPH # 1.2 10^3/uL (1.5-5.0); LYMPH % 26.5 % (24.0-44.0); MEAN CORPUSCULAR HEMOGLOBIN 31.3 pg (27.0-33.0); MEAN CORPUSCULAR HGB CONC 33.4 g/dl (32.0-36.5); MEAN CORPUSCULAR VOLUME 93.7 fl (80.0-96.0); MONO # 0.5 10^3/uL (0.0-0.8); MONO % 10.7 % (0.0-5.0); NEUTROPHILS # 2.6 10^3/uL (1.5-8.5); NEUTROPHILS % 59.8 % (36.0-66.0); PLATELET COUNT, AUTOMATED 310 10^3/uL (150-450); RED BLOOD COUNT 4.28 10^6/uL (4.00-5.40); WHITE BLOOD COUNT 4.4 10^3/uL (4.0-10.0)
[2020-04-17 04:48] LABS: BLOOD UREA NITROGEN 14 MG/DL (7-18); CALCIUM LEVEL 8.9 MG/DL (8.5-10.1); CARBON DIOXIDE LEVEL 25 MEQ/L (21-32); CHLORIDE LEVEL 107 MEQ/L (98-107); CK-MB VALUE MASS < 1.0 NG/ML (<3.6); CPK CREATINE PHOSPHOKINASE 23 U/L (26-192); CREATININE FOR GFR 0.82 MG/DL (0.55-1.30); GLOMERULAR FILTRATION RATE > 60.0 (>51); GLUCOSE, FASTING 106 MG/DL (70-100); MAGNESIUM LEVEL 2.1 MG/DL (1.8-2.4); MB/CK RELATIVE INDEX 4.35 (< OR =4); POTASSIUM SERUM 3.9 MEQ/L (3.5-5.1); SODIUM LEVEL 141 MEQ/L (136-145); TROPONIN I < 0.02 NG/ML (< 0.10)
[2020-04-17 05:45] VITALS: PULSE 68
[2020-04-17 08:00] VITALS: BP 130/67
--- NOTE | 2020-04-17 08:15 | REP ---
REASON: Chest pain. COMPARISON: 04/05/2020. CHEST PORTABLE: FINDINGS: The technique utilized in obtaining the radiograph has magnified the cardiac silhouette and accentuated the interstitial markings. The superior mediastinal structures are midline. The cardiac silhouette is unremarkable in size, shape, and position. The diaphragmatic surfaces of the lungs are regular, and the costophrenic angles are clear. The pulmonary archuleta are clear. The imaged osseous structures are intact. IMPRESSION: There is no acute cardiopulmonary disease. No change. Electronically Signed by Prashant Jones DO 04/17/2020 09:39 A
[2020-04-17] MEDS ORDERED: OMEPRAZOLE 20 MG CAP PO SCH (09:00)
[2020-04-17] MEDS ORDERED: FLUTICASONE PROP 0.05% NASAL SPRAY 16 GM (FLONASE) NARES SCH (09:00)
[2020-04-17] MEDS: MESALAMINE 1,000 MG SUPP PR SCH (09:00)
[2020-04-17] MEDS ORDERED: ISOSORBIDE MON. (IMDUR) 30 MG XR TAB PO SCH (09:00)
[2020-04-17] MEDS ORDERED: ASPIRIN 325 MG TAB PO SCH (09:00)
[2020-04-17] MEDS: RIVAROXABAN 15 MG TAB (XARELTO) PO SCH (09:39)
[2020-04-17] MEDS: lamoTRIgine 100MG TAB PO SCH (09:39)
[2020-04-17] MEDS ORDERED: DILT60TA PO (10:37)
[2020-04-17] MEDS ORDERED: ISOS30TA4 PO (10:44)
--- NOTE | 2020-04-17 11:01 | ECGEPIP ---
[facility] Test Date: 2020-04-17 Pat Name: MORENITA OCAMPO Department: Room: R6999-66 Gender: Female [employer]: BELKIS : 1970 Requested By: ESTHER TROTTER Order Number: [id number] Reading MD: Padilla Asher Measurements Intervals [place] Rate: 73 P: 30 [place]: 184 QRS: 17 QRSD: 87 T: 43 QT: 403 QTc: 446 Interpretive Statements SINUS RHYTHM Poor R wave progression. Subtle nonspecific ST abnormalities. No significant change compared with 04/16/2020. Electronically Signed on 04-17-2020 11:00:53 EDT by Padilla Asher
[2020-04-17 12:00] VITALS: BP 121/59
[2020-04-17 12:06] VITALS: BP 132/61
--- NOTE | 2020-04-17 19:18 | DS.PDOC ---
Discharge Summary General Date of Admission Apr 16, 2020 at 20:05 Date of Discharge 04/17/2020 Attending Physician: MARIE GARCIA DO Discharge Summary PROCEDURES PERFORMED DURING STAY: None. ADMITTING DIAGNOSES: 1. Prinzmetal angina 2. Epilepsy 3. Ulcerative colitis. 4. Gastroparesis. 5. Fibromyalgia. 6. GERD DISCHARGE DIAGNOSES: 1. Prinzmetal angina. 2. Epilepsy. 3. Ulcerative colitis. 4. Gastroparesis. 5. Fibromyalgia. 6. GERD COMPLICATIONS/CHIEF COMPLAINT: Chest pain HISTORY OF PRESENT ILLNESS: Patient is a 50-year-old female who presented to the hospital with chest pain that occurred in the center of the chest, described as 5/10, pressure-like intensity occurring intermittently, radiating to his left neck aggravated with exertion, diaphoresis. Denies any nausea or vomiting. She reports the symptoms started 10 AM and occurred intermittently until 2 PM and then when she arrived to the emergency department. She denies any abdominal pain, discomfort with urination, fever or chills On April 05. Patient presented with chest pain and was transferred to [facility] where she had cardiac catheterization and noted having normal coronary arteries and no stents were placed. She was discharged home next day. She presented to the hospital again on 04/09, 04/10 for right wrist pain. Was given medications and was advised to follow up at [facility]. In [facility] she had occlusion of his right radial artery, requiring repair. Patient was told that she has spasms in her right radial artery and the chest pain is likely Prinzmetal angina. Taty ent was discharged home on calcium channel blockers. HOSPITAL COURSE: She was admitted to the hospital, she reports chest pain has improved. Two sets of troponins were negative. Patient had CTA chest to rule out pulmonary embolism, which was negative. She was continued on aspirin and her calcium channel michaelle and she got a single dose of Imdur. Cardiology was consulted, case discussed with Dr. Hannon and well see her on Friday[04/22/2020]. As per cardiology recommendations will continue her on diltiazem 3 times a day, Imdur once a day discharge. DISCHARGE MEDICATIONS: Please see below. ALLERGIES: Please see below. PHYSICAL EXAMINATION ON DISCHARGE: VITAL SIGNS: Please see below. General: Patient is awake, alert, oriented times three, sitting on bed , no apparent distress. Eyes: Conjunctiva clear, pupils equal round and reactive to light and accommodation. EOM full, Fundus: not visualized. ENT: Hearing Bilateral normal. No nasal deviation. Cardiovascular: S1, S2, normal rhythm, no murmur, rub, or Respiratory: Chest is clear to auscultation bilaterally, No rhonchi, wheezes or rubs. Abdomen: Soft, bowel sounds positive, no bruits. No tenderness on palpation. Liver edge, spleen, kidney not felt, no masses. Extremities: No clubbing or cyanosis. No edema, no tenderness. Central nervous system (CHANGE CONTROL MANAGER): Awake, alert and fully oriented. Cranial nerves III-XII grossly intact. Motor: Strength normal, patient moves all extremities Skin: No rashes, lesions, ulcerations, subcutaneous nodules or induration. LABORATORY DATA: Please see below. IMAGING: Chest x-ray: No acute cardiopulmonary disease CTA chest: No acute findings in the chest. No pulmonary embolism. PROGNOSIS: Good ACTIVITY: As tolerated. DIET: Regular diet DISCHARGE PLAN: She will be continued on diltiazem 3 times a day and imdur once a day and has a follow-up with on Friday. DISPOSITION: Discharge to home DISCHARGE INSTRUCTIONS: 1. Diltiazem 60 mg tablet by mouth three times a day. 2. Isosorbide Mononitrate 30mg by mouth once daily. ITEMS TO FOLLOWUP ON OUTPATIENT: 1. Follow-up with her PCP in one week. 2. Follow-up with cardiology Dr. hannon on Friday[04/22/2020] DISCHARGE CONDITION: Stable. TIME SPENT ON DISCHARGE: Greater than 50 minutes. *Note written by Oswald Salmon MD and reviewed. Vital Signs/I&Os Vital Signs Date Time Temp Pulse Resp B/P (MAP) Pulse Ox O2 Delivery O2 Flow Rate FiO2 04/17/20 12:06 132/61 04/17/20 12:00 97.8 89 18 98 Room Air Laboratory Data Labs 24H Laboratory Tests 2 04/16/20 22:10: Total Creatine Kinase 21L, Creatine Kinase MB < 1.0, Creatine Kinase MB Relative Index 4.76H, Troponin I < 0.02, Triglycerides Level 296H, Total Cholesterol 242H, LDL Cholesterol 131H, Non-HDL Cholesterol (LDL + VLDL) 190, Total HDL Cholesterol 52, Cholesterol/HDL Ratio 4.653 04/17/20 04:12: Total Creatine Kinase 23L, Creatine Kinase MB < 1.0, Creatine Kinase MB Relative Index 4.35H, Troponin I < 0.02, Immature Granulocyte % (Auto) 0.7, Neutrophils (%) (Auto) 59.8, Lymphocytes (%) (Auto) 26.5, Monocytes (%) (Auto) 10.7H, Eosinophils (%) (Auto) 1.8, Basophils (%) (Auto) 0.5, Neutrophils # (Auto) 2.6, Lymphocytes # (Auto) 1.2L, Monocytes # (Auto) 0.5, Eosinophils # (Auto) 0.1, Basophils # (Auto) 0.0, Nucleated Red Blood Cells % (auto) 0.0, Anion Gap 9, Glomerular Filtration Rate > 60.0, Calcium Level 8.9, Magnesium Level 2.1 CBC/BMP Laboratory Tests 04/17/20 04:12 Discharge Medications Scheduled Aspirin (Aspirin) 325 Mg Tablet, 325 MG PO DAILY, (Reported) Bifidobacterium Infantis (Align) 4 Mg Capsule, 4 MG PO QHS, (Reported) Calcium Carbonate/Vitamin D3 (Calcium 600-Vit D3 800 Tablet) 1 Tab Tab, 1 TAB PO BID, (Reported) Carboxymethylcellulose Sodium (Refresh Tears) 0.5 % Fly, 1 DROP OD TID, (Reported) Diltiazem Hcl (Diltiazem HCl) 60 Mg Tablet, 60 MG PO Q8H Fluticasone Propionate (Flonase Allergy Relief) 50 Mcg/Act Spr, 2 SPRAY NARES DAILY, (Reported) Galcanezumab-Gnlm (Emgality Pen) 120 Mg/1 Ml Pen.injctr, 120 MG SC MTHLY, (Reported) 18TH OF THE MONTH Isosorbide Mononitrate (Isosorbide Mononitrate ER) 30 Mg Tab.er.24h, 30 MG PO DAILY Lamotrigine (Lamotrigine) 100 Mg Tab, 100 MG PO BID, (Reported) Loratadine (Claritin) 10 Mg Capsule, 10 MG PO QPM for allergy symptoms, (Reported) Mesalamine (Lialda) 1.2 Gm Tab, 2.4 GRAMS PO BID, (Reported) [place]-3 Acid Ethyl Esters (Lovaza) 1 Gm Capsule, 2 GRAMS PO DAILY, (Reported) Omeprazole (Omeprazole) 40 Mg Capsule., 40 MG PO DAILY, (Reported) Rivaroxaban (Xarelto) 15 Mg Tablet, 15 MG PO BID, (Reported) Vitamin B Complex (Vitamin B Complex) 1 Each Tablet, 1 TAB PO DAILY, (Reported) Scheduled PRN Butalbital/Aspirin/Caffeine (Fiorinal 50-325-40 mg Capsule) 1 Cap Cap, 1 CAP PO Q6HP PRN for pain, (Reported) Cyclobenzaprine HCl (Cyclobenzaprine HCl) 5 Mg Tablet, 5 MG PO TID PRN for muscle spasms, (Reported) Dicyclomine HCl (Dicyclomine HCl) 20 Mg Tablet, 20 MG PO DAILY PRN for DIARRHEA, (Reported) Hydrocodone/Acetaminophen (Hydrocodone-Acetamin 5-325 mg) 1 Each Tablet, 1 TAB PO Q4H PRN for PAIN, (Reported) Lorazepam (Ativan) 0.5 Mg Tab, 5 MG PO BID PRN for anxiety, (Reported) Allergies Coded Allergies: acetaminophen (Verified Allergy, Unknown, 04/05/20) codeine (Verified Allergy, Unknown, 04/05/20) oxycodone (Verified Allergy, Unknown, 04/05/20) ANIKA CRAWFORD D.O. Apr 17, 2020 19:18
[2020-04-18] MEDS ORDERED: ISOSORBIDE MON. (IMDUR) 30 MG XR TAB PO SCH (09:00)
== END 2020-04-17 12:51 | disposition home or self-care (01) | DRG 311 ==
LOC: M ED 14:38 → M ED INP 20:05 → ENRESERV 04-17 02:33 → M PCU 04-17 03:38
PROVIDERS: ADMIT Internal Medicine; ATTEND Internal Medicine
DX: I20.1 Angina pectoris with documented spasm (principal); K51.90 Ulcerative colitis, unspecified, without complications; G40.909 Epilepsy, unspecified, not intractable, without status epilepticus; M79.7 Fibromyalgia; K21.9 Gastro-esophageal reflux disease without esophagitis; Z79.899 Other long term (current) drug therapy; Z79.82 Long term (current) use of aspirin; Z88.5 Allergy status to narcotic agent; Z88.6 Allergy status to analgesic agent; K31.84 Gastroparesis

== ENCOUNTER → 2020-05-10 | Outpatient (REF) | payer OTHER ==
[~2020-05-10] MED LIST changes: +ALIG4CAP PO; +ASPI-1 PO; +CART180C3 PO; +CLAR10CA3 PO; +DICY20TA11 PO; +DILT60TA PO; +EMGA120I SC; +HYDR-3713 PO; +ISOS30TA4 PO; +LOVA1CAP17 PO; +VITATAB73 PO; +XARE15TA PO; +XARE20TA PO
[2020-07-02 10:09] LABS: AMORPHOUS SEDIMENT SMALL (NEGATIVE); APPEARANCE, URINE CLOUDY (CLEAR); BACTERIA, URINE AUTO 1+ (NEGATIVE); BILIRUBIN, URINE AUTO NEGATIVE (NEGATIVE); BLOOD, URINE BLOOD 3+ (NEGATIVE); CALCIUM OXALATE CRYSTALS LARGE; COLOR, URINE AMBER (YELLOW); GLUCOSE, URINE (UA) AUTO NEGATIVE (NEGATIVE); KETONE, URINE AUTO NEGATIVE (NEGATIVE); LEUKOCYTE ESTERASE, URINE AUTO NEGATIVE (NEGATIVE); MUCUS, URINE SMALL (NEGATIVE); NITRITE, URINE AUTO NEGATIVE (NEGATIVE); PROTEIN, URINE AUTO 2+ mg/dL (NEGATIVE); RBC, URINE AUTO TNTC /HPF (0-3); SPECIFIC GRAVITY URINE AUTO 1.027 (1.002-1.035); SQUAMOUS EPITHELIAL CELL UR AU 3 /HPF (0-6); UROBILINOGEN, URINE AUTO 0.2 mg/dL (0.0-2.0); WBC, URINE AUTO 5 /HPF (0-3)
== END ==
LOC: M LAB REF 12:19
PROVIDERS: ATTEND Physician Assistant
DX: N39.0 Urinary tract infection, site not specified (principal)

== ENCOUNTER 2020-05-13 06:49 | Emergency (ER) | payer OTHER ==
[2020-05-13] MEDS ORDERED: ACETAMINOPHEN 500 MG TAB ONE (07:44)
[2020-05-13] MEDS ORDERED: ONDANSETRON 4MG/2ML VIAL ONE (07:44)
[2020-05-13] MEDS ORDERED: ONDANSETRON 4MG/2ML VIAL As Ordered ONE (07:44)
[2020-05-13] MEDS ORDERED: ACETAMINOPHEN 500 MG TAB As Ordered ONE (07:44)
[2020-05-13] MEDS ORDERED: MORPHINE 2 MG/ML 1ML VIAL (J2270) ONE (11:35)
[2020-05-13] MEDS ORDERED: MORPHINE 2 MG/ML 1ML VIAL (J2270) As Ordered ONE (11:35)
[2020-06-26 11:59] LABS: APPEARANCE, URINE MANUAL CLOUDY (CLEAR); BILIRUBIN, URINE MANUAL NEGATIVE (NEGATIVE); BLOOD URINE MANUAL POSITIVE (NEGATIVE); COLOR, URINE MANUAL AMBER (YELLOW); GLUCOSE, URINE (UA) MANUAL NEGATIVE (NEGATIVE); KETONE, URINE MANUAL NEGATIVE (NEGATIVE); LEUKOCYTE ESTERASE, URINE MAN POSITIVE (NEGATIVE); NITRITE, URINE MANUAL NEGATIVE (NEGATIVE); PH,URINE MAN 5.5 UNITS (5.0 - 7.0); PROTEIN, URINE MANUAL 2+ mg/dL (NEGATIVE); RBC, URINE TNTC /hpf (0-3); SPECIFIC GRAVITY,URINE MANUAL 1.015 (1.002-1.035); SQUAMOUS EPITHELIAL CELL URINE SMALL AMOUNT /hpf (SMALL AMT); UROBILINOGEN, URINE MANUAL NORMAL (NORMAL)
[2020-06-26 12:00] LABS: BACTERIA, URINE NONE SEEN; HYALINE CAST, URINE NONE SEEN /lpf (0-1); MUCUS, URINE SMALL AMOUNT (NEGATIVE)
[2020-06-26 12:11] LABS: INR 1.62; PROTHROMBIN TIME 19.6 SECONDS (12.5-14.3)
[2020-06-26 13:38] LABS: BASO % 0.5 % (0.0-1.0); EOS # 0.1 10^3/uL (0.0-0.5); EOS % 1.5 % (0.0-3.0); HEMATOCRIT 37.7 % (36.0-47.0); HEMOGLOBIN 12.9 g/dl (12.0-15.5); LYMPH # 0.8 10^3/uL (1.5-5.0); LYMPH % 18.6 % (24.0-44.0); MEAN CORPUSCULAR HEMOGLOBIN 31.2 pg (27.0-33.0); MEAN CORPUSCULAR HGB CONC 34.2 g/dl (32.0-36.5); MEAN CORPUSCULAR VOLUME 91.1 fl (80.0-96.0); MONO # 0.5 10^3/uL (0.0-0.8); MONO % 11.4 % (0.0-5.0); NEUTROPHILS # 2.7 10^3/uL (1.5-8.5); NEUTROPHILS % 67.5 % (36.0-66.0); PLATELET COUNT, AUTOMATED 285 10^3/uL (150-450); RED BLOOD COUNT 4.14 10^6/uL (4.00-5.40)
== END 2020-05-13 12:09 | disposition home or self-care (01) ==
LOC: M ED 06:49
DX: N30.90 Cystitis, unspecified without hematuria (principal); K81.1 Chronic cholecystitis; R51 Headache; I10 Essential (primary) hypertension; I25.10 Atherosclerotic heart disease of native coronary artery without angina pectoris; I35.1 Nonrheumatic aortic (valve) insufficiency; M79.7 Fibromyalgia; G40.909 Epilepsy, unspecified, not intractable, without status epilepticus; K52.9 Noninfective gastroenteritis and colitis, unspecified; Z88.1 Allergy status to other antibiotic agents; Z91.040 Latex allergy status; Z79.899 Other long term (current) drug therapy
CPT/HCPCS: 74176; 76705; 76857; 80048; 80076; 81000; 83690; 85025; 85610; 85730; 87086; 96374; 96375; 99284; J2270; J2405

== ENCOUNTER 2020-05-21 12:23 | Emergency (ER) | payer OTHER ==
[~2020-05-21] VITALS: Ht 165.1 cm; Wt 68.4 kg
[2020-05-21] MEDS ORDERED: NS 1,000 ML IV ONE (13:15)
[2020-05-21] MEDS ORDERED: ONDANSETRON 4MG/2ML VIAL IV ONE (13:15)
[2020-05-21 13:19] LABS: BASO % 0.3 % (0.0-1.0); EOS # 0.1 10^3/uL (0.0-0.5); EOS % 1.7 % (0.0-3.0); HEMATOCRIT 37.5 % (36.0-47.0); HEMOGLOBIN 12.9 g/dl (12.0-15.5); LYMPH # 0.7 10^3/uL (1.5-5.0); LYMPH % 20.3 % (24.0-44.0); MEAN CORPUSCULAR HEMOGLOBIN 31.8 pg (27.0-33.0); MEAN CORPUSCULAR HGB CONC 34.4 g/dl (32.0-36.5); MEAN CORPUSCULAR VOLUME 92.4 fl (80.0-96.0); MONO # 0.4 10^3/uL (0.0-0.8); MONO % 11.7 % (0.0-5.0); NEUTROPHILS # 2.3 10^3/uL (1.5-8.5); NEUTROPHILS % 65.7 % (36.0-66.0); PLATELET COUNT, AUTOMATED 282 10^3/uL (150-450); RED BLOOD COUNT 4.06 10^6/uL (4.00-5.40); WHITE BLOOD COUNT 3.5 10^3/uL (4.0-10.0)
[2020-05-21 13:47] LABS: ALBUMIN 4.1 GM/DL (3.2-5.2); ALT/SGPT 71 U/L (12-78); BILIRUBIN,DIRECT < 0.1 MG/DL (0.0-0.2); BILIRUBIN,TOTAL 0.4 MG/DL (0.2-1.0); LIPASE 131 U/L (73-393); TOTAL PROTEIN 7.4 GM/DL (6.4-8.2)
[2020-05-21] MEDS ORDERED: ONDA4TAB6 PO (15:24)
[2020-05-21 16:04] VITALS: BP 107/53
--- NOTE | 2020-06-20 07:16 | REP ---
RIGHT UPPER QUADRANT SONOGRAPHY HISTORY: Gallstones. Right upper quadrant pain. FINDINGS: Scanning through the right upper quadrant of the abdomen demonstrates normal size thin walled gallbladder containing shadowing echogenic focus consistent with gallstones. Common bile duct is normal measuring 0.3 cm in greatest diameter. Liver parenchyma is some hyperechoic consistent with fatty infiltration. No focal liver lesion is seen. The pancreas the obscured by abdominal gas. There is no evidence of ascites or right renal abnormality. The right kidney measures 12.7 x 5.0 x 3.7 cm. IMPRESSION: Cholelithiasis. Otherwise, negative right upper quadrant sonogram. MTDD
== END 2020-05-21 16:17 | disposition home or self-care (01) ==
LOC: M ED 12:23
DX: K80.50 Calculus of bile duct without cholangitis or cholecystitis without obstruction (principal); R11.2 Nausea with vomiting, unspecified; Z88.6 Allergy status to analgesic agent; Z88.5 Allergy status to narcotic agent; Z79.82 Long term (current) use of aspirin; Z79.899 Other long term (current) drug therapy
CPT/HCPCS: 76705; 80047; 80076; 83690; 85025; 96361; 96374; 99284; J2405

== ENCOUNTER → 2020-06-07 | Outpatient (REF) | payer OTHER ==
[2020-06-07 18:25] LABS: APPEARANCE, URINE CLEAR (CLEAR); BACTERIA, URINE AUTO NEGATIVE (NEGATIVE); BILIRUBIN, URINE AUTO NEGATIVE (NEGATIVE); BLOOD, URINE BLOOD 1+ (NEGATIVE); COLOR, URINE STRAW (YELLOW); GLUCOSE, URINE (UA) AUTO NEGATIVE (NEGATIVE); KETONE, URINE AUTO NEGATIVE (NEGATIVE); LEUKOCYTE ESTERASE, URINE AUTO NEGATIVE (NEGATIVE); NITRITE, URINE AUTO NEGATIVE (NEGATIVE); PROTEIN, URINE AUTO NEGATIVE (NEGATIVE); RBC, URINE AUTO 1 /HPF (0-3); SPECIFIC GRAVITY URINE AUTO 1.003 (1.002-1.035); SQUAMOUS EPITHELIAL CELL UR AU 0 /HPF (0-6); UROBILINOGEN, URINE AUTO 0.2 mg/dL (0.0-2.0); WBC, URINE AUTO 0 /HPF (0-3)
== END ==
LOC: M LAB REF 15:00
PROVIDERS: ATTEND Physician Assistant
DX: N39.0 Urinary tract infection, site not specified (principal)

== ENCOUNTER → 2020-07-17 | Outpatient (CLI) | payer OTHER ==
--- NOTE | 2020-07-17 14:50 | REPMRS ---
Patient History The patient states she has not had a clinical breast exam in over a year. Patient is postmenopausal and has history of endometrial cancer at age 29. Family history of unknown cancer in maternal grandmother. Took hormonal contraceptives for 1 year. Patient states she had bilateral breast reduction in 2012. 3D TOMOSYNTHESIS WAS PERFORMED. [facility] lifetime risk for breast cancer is 8.8%. VOLPARA DENSITY B. Digital Woman Screen Mammo: July 17, 2020 - Exam #: [id number] Bilateral CC and MLO view(s) were taken. Technologist: Stephie Olivera, Technologist Prior study comparison: June 09, 2019, bilateral digital mammo screening bilat, performed at [facility]. December 05, 2017, bilateral digital mammo screening bilat, performed at [place], [place]. FINDINGS: There are scattered fibroglandular densities. There has been no change in the appearance of the mammogram from the prior studies. There is a mild amount of residual fibroglandular tissue which is fairly symmetric. There is no interval development of dominant mass, architectural distortion, or clustered microcalcification suggestive of malignancy. Assessment: BI-RADS/ACR category 1 mammogram. Negative Mammogram. Recommendation Routine screening mammogram in 1 year (for women over age 40). This mammogram was interpreted with the aid of an FDA-approved computer-aided dectection system. Electronically Signed By: Elia Everett MD 07/17/20 [id number]
== END ==
LOC: M WHC 14:01
PROVIDERS: ATTEND Nurse Practitioner Primary Care
DX: Z12.31 Encounter for screening mammogram for malignant neoplasm of breast (principal); Z85.42 Personal history of malignant neoplasm of other parts of uterus; Z80.9 Family history of malignant neoplasm, unspecified

== ENCOUNTER 2020-09-21 18:51 | Emergency (ER) | payer OTHER ==
[~2020-09-21] VITALS: Ht 165.1 cm; Wt 68.5 kg
[2020-09-21 18:52] VITALS: BP 119/64
[2020-09-21] MEDS ORDERED: DERMABOND TOPICAL SKIN ADHESIVE TOP ONE ×2 (20:15→20:45)
== END 2020-09-21 20:41 | disposition home or self-care (01) ==
LOC: M ED 18:51
DX: S61.012A Laceration without foreign body of left thumb without damage to nail, initial encounter (principal); W26.0XXA Contact with knife, initial encounter; Y92.000 Kitchen of unspecified non-institutional (private) residence as the place of occurrence of the external cause; Y93.G1 Activity, food preparation and clean up; Y99.9 Unspecified external cause status; Z88.6 Allergy status to analgesic agent; Z88.5 Allergy status to narcotic agent; Z79.899 Other long term (current) drug therapy

== ENCOUNTER → 2020-10-12 | Outpatient (CLI) | payer OTHER ==
[2020-10-12 10:58] LABS: BASO % 0.5 % (0.0-1.0); EOS # 0.1 10^3/uL (0.0-0.5); EOS % 2.1 % (0.0-3.0); HEMATOCRIT 38.9 % (36.0-47.0); HEMOGLOBIN 12.6 g/dl (12.0-15.5); LYMPH # 0.6 10^3/uL (1.5-5.0); LYMPH % 16.5 % (24.0-44.0); MEAN CORPUSCULAR HEMOGLOBIN 29.9 pg (27.0-33.0); MEAN CORPUSCULAR HGB CONC 32.4 g/dl (32.0-36.5); MEAN CORPUSCULAR VOLUME 92.4 fl (80.0-96.0); MONO # 0.4 10^3/uL (0.0-0.8); MONO % 10.9 % (0.0-5.0); NEUTROPHILS # 2.7 10^3/uL (1.5-8.5); NEUTROPHILS % 69.5 % (36.0-66.0); PLATELET COUNT, AUTOMATED 302 10^3/uL (150-450); RED BLOOD COUNT 4.21 10^6/uL (4.00-5.40); WHITE BLOOD COUNT 3.9 10^3/uL (4.0-10.0)
== END ==
LOC: M LAB 10:18
PROVIDERS: ATTEND Internal Medicine Gastroenterology
DX: D64.9 Anemia, unspecified (principal)

== ENCOUNTER → 2020-11-14 | Outpatient (CLI) | payer OTHER ==
[~2020-11-14] MED LIST changes: +ISOS1TAB35 PO; -ISOS30TA4 PO
[2020-11-14 17:06] LABS: BASO % 0.5 % (0.0-1.0); EOS # 0.1 10^3/uL (0.0-0.5); EOS % 0.8 % (0.0-3.0); HEMATOCRIT 36.3 % (36.0-47.0); HEMOGLOBIN 11.6 g/dl (12.0-15.5); LYMPH # 0.8 10^3/uL (1.5-5.0); LYMPH % 12.6 % (24.0-44.0); MEAN CORPUSCULAR HEMOGLOBIN 29.3 pg (27.0-33.0); MEAN CORPUSCULAR VOLUME 91.7 fl (80.0-96.0); MONO # 0.5 10^3/uL (0.0-0.8); MONO % 7.6 % (2.0-8.0); NEUTROPHILS # 4.7 10^3/uL (1.5-8.5); NEUTROPHILS % 78.2 % (36.0-66.0); PLATELET COUNT, AUTOMATED 327 10^3/uL (150-450); RED BLOOD COUNT 3.96 10^6/uL (4.00-5.40)
[2020-11-14 17:08] LABS: APPEARANCE, URINE CLEAR (CLEAR); BACTERIA, URINE AUTO NEGATIVE (NEGATIVE); BILIRUBIN, URINE AUTO NEGATIVE (NEGATIVE); BLOOD, URINE BLOOD NEGATIVE (NEGATIVE); COLOR, URINE YELLOW (YELLOW); GLUCOSE, URINE (UA) AUTO NEGATIVE (NEGATIVE); KETONE, URINE AUTO NEGATIVE (NEGATIVE); LEUKOCYTE ESTERASE, URINE AUTO NEGATIVE (NEGATIVE); MUCUS, URINE SMALL (NEGATIVE); NITRITE, URINE AUTO NEGATIVE (NEGATIVE); PROTEIN, URINE AUTO NEGATIVE (NEGATIVE); RBC, URINE AUTO 1 /HPF (0-3); SPECIFIC GRAVITY URINE AUTO 1.016 (1.002-1.035); SQUAMOUS EPITHELIAL CELL UR AU 1 /HPF (0-6); TRANSITIONAL EPITHELIAL AUTO <1 /HPF; UROBILINOGEN, URINE AUTO 0.2 mg/dL (0.0-2.0); WBC, URINE AUTO 1 /HPF (0-3)
[2020-11-14 17:15] LABS: INR 1.13; PROTHROMBIN TIME 14.8 SECONDS (12.5-14.3)
[2020-11-14 17:16] LABS: PARTIAL THROMBOPLASTIN TIME 33.7 SECONDS (24.2-38.5)
== END ==
LOC: M LAB 12:25
PROVIDERS: ATTEND Podiatrist
DX: M79.672 Pain in left foot (principal)

== ENCOUNTER → 2020-12-08 | Outpatient (REF) | payer OTHER ==
[2020-12-08 18:58] LABS: APPEARANCE, URINE CLEAR (CLEAR); BACTERIA, URINE AUTO NEGATIVE (NEGATIVE); BILIRUBIN, URINE AUTO NEGATIVE (NEGATIVE); BLOOD, URINE BLOOD NEGATIVE (NEGATIVE); CALCIUM OXALATE CRYSTALS SMALL; COLOR, URINE AMBER (YELLOW); GLUCOSE, URINE (UA) AUTO NEGATIVE (NEGATIVE); KETONE, URINE AUTO NEGATIVE (NEGATIVE); LEUKOCYTE ESTERASE, URINE AUTO 1+ (NEGATIVE); MUCUS, URINE SMALL (NEGATIVE); NITRITE, URINE AUTO POSITIVE (NEGATIVE); PROTEIN, URINE AUTO 1+ mg/dL (NEGATIVE); RBC, URINE AUTO 6 /HPF (0-3); SPECIFIC GRAVITY URINE AUTO 1.021 (1.002-1.035); SQUAMOUS EPITHELIAL CELL UR AU 0 /HPF (0-6); TRANSITIONAL EPITHELIAL AUTO 3 /HPF; WBC, URINE AUTO 105 /HPF (0-3)
== END ==
LOC: M LAB REF 16:43
PROVIDERS: ATTEND Physician Assistant
DX: R30.0 Dysuria (principal)

== ENCOUNTER → 2021-01-10 | Outpatient (REF) | payer OTHER ==
[2021-01-10 13:39] LABS: APPEARANCE, URINE MANUAL CLOUDY (CLEAR); BILIRUBIN, URINE MANUAL NEGATIVE (NEGATIVE); COLOR, URINE MANUAL ORANGE (YELLOW); GLUCOSE, URINE (UA) MANUAL NEGATIVE (NEGATIVE); KETONE, URINE MANUAL NEGATIVE (NEGATIVE); NITRITE, URINE MANUAL NEGATIVE (NEGATIVE); PROTEIN, URINE MANUAL 3+ mg/dL (NEGATIVE); SPECIFIC GRAVITY,URINE MANUAL 1.025 (1.002-1.035); UROBILINOGEN, URINE MANUAL NORMAL (NORMAL)
[2021-01-10 13:40] LABS: BLOOD URINE MANUAL POSITIVE (NEGATIVE); LEUKOCYTE ESTERASE, URINE MAN NEGATIVE (NEGATIVE)
[2021-01-10 13:51] LABS: RBC, URINE TNTC /hpf (0-3); SQUAMOUS EPITHELIAL CELL URINE SMALL AMOUNT /hpf (SMALL AMT); WBC, URINE TNTC /hpf (0-3)
[2021-01-10 13:52] LABS: BACTERIA, URINE SMALL AMOUNT; CALCIUM OXALATE CRYSTALS,URINE MOD AMOUNT /hpf
== END ==
LOC: M LAB REF 12:04
PROVIDERS: ATTEND Physician Assistant Medical
DX: N39.0 Urinary tract infection, site not specified (principal)

== ENCOUNTER → 2021-04-06 | Outpatient (CLI) | payer OTHER ==
[2021-04-06 19:45] LABS: ALBUMIN 3.9 GM/DL (3.2-5.2); ALT/SGPT 37 U/L (12-78); BILIRUBIN,TOTAL 0.2 MG/DL (0.2-1.0); BLOOD UREA NITROGEN 19 MG/DL (7-18); CARBON DIOXIDE LEVEL 32 MEQ/L (21-32); CHLORIDE LEVEL 106 MEQ/L (98-107); CREATININE FOR GFR 0.74 MG/DL (0.55-1.30); GLOMERULAR FILTRATION RATE > 60.0 (>51); GLUCOSE, FASTING 89 MG/DL (70-100); POTASSIUM SERUM 4.5 MEQ/L (3.5-5.1); SODIUM LEVEL 140 MEQ/L (136-145); THYROID STIMULATING HORMONE 0.502 uIU/ML (0.358-3.740); TOTAL PROTEIN 6.9 GM/DL (6.4-8.2)
== END ==
LOC: M LAB 15:48
PROVIDERS: ATTEND Nurse Practitioner Family
DX: R00.2 Palpitations (principal)

== ENCOUNTER → 2021-04-24 | Outpatient (REF) | payer OTHER ==
[2021-04-24 12:20] LABS: CHOLESTEROL RISK RATIO 3.227 (<5)
== END ==
LOC: M WUC 11:15
PROVIDERS: ATTEND Nurse Practitioner Family
DX: E78.5 Hyperlipidemia, unspecified (principal)

== ENCOUNTER 2021-06-08 16:16 | Emergency (ER) | payer OTHER ==
[~2021-06-08] VITALS: Ht 165.1 cm; Wt 76.3 kg
--- NOTE | 2021-06-08 19:36 | REP ---
INDICATION: injury COMPARISON: None. TECHNIQUE: Two views left lower leg. FINDINGS: There is no evidence of acute fracture, dislocation, or intrinsic bone disease.Smoothly marginated calcific density adjacent to the medial malleolus may represent an old avulsion fracture. IMPRESSION: No acute fracture or dislocation. <Electronically signed by Elia Everett > 06/08/[id number]
[2021-06-08 20:54] VITALS: BP 117/68
== END 2021-06-08 20:57 | disposition home or self-care (01) ==
LOC: M ED 16:16
DX: S80.12XA Contusion of left lower leg, initial encounter (principal); W22.8XXA Striking against or struck by other objects, initial encounter; Y92.9 Unspecified place or not applicable; Y93.9 Activity, unspecified; Y99.9 Unspecified external cause status; Z79.01 Long term (current) use of anticoagulants; Z95.818 Presence of other cardiac implants and grafts; Z88.6 Allergy status to analgesic agent

== ENCOUNTER 2021-07-15 20:42 | Emergency (ER) | payer OTHER ==
[~2021-07-15] VITALS: Ht 165.1 cm; Wt 78.3 kg
[~2021-07-15 20:42] MED LIST changes: -DICY20TA11 PO; +DICY20TA20 PO; -OMEP-221 PO; +OMEP40CA5 PO
[2021-07-15] MEDS ORDERED: METO37.5 PO (21:05)
[2021-07-15] MEDS ORDERED: FLEC50HA PO (21:05)
[2021-07-15] MEDS ORDERED: PRED20TA PO (21:06)
[2021-07-16 02:08] VITALS: BP 117/79
== END 2021-07-16 02:13 | disposition home or self-care (01) ==
LOC: M ED 20:42
DX: R60.0 Localized edema (principal); R56.9 Unspecified convulsions; M79.7 Fibromyalgia; I20.9 Angina pectoris, unspecified; Z88.5 Allergy status to narcotic agent; Z88.6 Allergy status to analgesic agent; Z79.899 Other long term (current) drug therapy

== ENCOUNTER → 2021-09-26 | Outpatient (CLI) | payer OTHER ==
[~2021-09-26] MED LIST changes: +DICY20TA11 PO; -DICY20TA20 PO; +FLEC50HA PO; +METO37.5 PO; +OMEP-221 PO; -OMEP40CA5 PO; +PRED20TA PO
--- NOTE | 2021-09-26 15:07 | REP ---
INDICATION: M79.671 M79.674 PAIN IN RIGHT FOOT AND RIGHT TOES. COMPARISON: 09/15/2018 TECHNIQUE: Four views FINDINGS: There is an old healed 5th metatarsal fracture. There are changes secondary to previous bunionectomy status quo. There are plantar and retrocalcaneal heel spurs. Degenerative changes seen throughout the foot. There is no evidence of an acute fracture, dislocation, or subluxation. IMPRESSION: Chronic changes <Electronically signed by Prashant Jones > 09/26/21 [id number]
== END ==
LOC: M WUC 14:12
PROVIDERS: ATTEND Nurse Practitioner Family
DX: M79.671 Pain in right foot (principal); M79.674 Pain in right toe(s)

== ENCOUNTER → 2021-12-03 | Outpatient (CLI) | payer OTHER ==
[~2021-12-03] MED LIST changes: -DICY20TA11 PO; +DICY20TA20 PO; -OMEP-221 PO; +OMEP40CA5 PO
== END ==
LOC: M WHC 09:00
PROVIDERS: ATTEND Nurse Practitioner Primary Care
DX: N64.4 Mastodynia (principal)
CPT/HCPCS: 77066; G0279

== ENCOUNTER → 2022-01-09 | Outpatient (CLI) | payer OTHER | LOC: M CARPUL 13:38 | PROVIDERS: ATTEND Emergency Medicine | DX: J45.909 Unspecified asthma, uncomplicated (principal) ==

== ENCOUNTER → 2022-01-23 | Outpatient (CLI) | payer OTHER | LOC: M WUC 12:58 | PROVIDERS: ATTEND Physician Assistant | DX: M25.572 Pain in left ankle and joints of left foot (principal) ==

== ENCOUNTER → 2022-02-01 | Outpatient (CLI) | payer OTHER ==
[2022-02-01 13:18] LABS: ALBUMIN 3.8 GM/DL (3.2-5.2); ALT/SGPT 43 U/L (12-78); BILIRUBIN,TOTAL 0.2 MG/DL (0.2-1.0); BLOOD UREA NITROGEN 15 MG/DL (7-18); CARBON DIOXIDE LEVEL 31 MEQ/L (21-32); CHLORIDE LEVEL 106 MEQ/L (98-107); CHOLESTEROL LEVEL 285 MG/DL (<200); CHOLESTEROL RISK RATIO 5.588 (<5); CREATININE FOR GFR 0.71 MG/DL (0.55-1.30); GLOMERULAR FILTRATION RATE > 60.0 (>51); GLUCOSE, FASTING 84 MG/DL (70-100); HDL CHOLESTEROL 51 MG/DL (>40); LDL CHOLESTEROL 178 MG/DL (<100); NON-HDL-C 234 MG/DL; POTASSIUM SERUM 4.7 MEQ/L (3.5-5.1); SODIUM LEVEL 142 MEQ/L (136-145); TOTAL PROTEIN 7.2 GM/DL (6.4-8.2); TRIGLYCERIDES LEVEL 281 MG/DL (<150)
== END ==
LOC: M WUC 11:11
PROVIDERS: ATTEND Nurse Practitioner Family
DX: E78.5 Hyperlipidemia, unspecified (principal)

== ENCOUNTER → 2022-02-16 | Outpatient (CLI) | payer OTHER | LOC: M SLEEP 20:00 | PROVIDERS: ATTEND Nurse Practitioner Family | DX: G47.33 Obstructive sleep apnea (adult) (pediatric) (principal) ==

== ENCOUNTER → 2022-02-26 | Outpatient (CLI) | payer OTHER ==
[~2022-02-26] MED LIST changes: +METHACHOLINE KIT (J7674) INH ONE
== END ==
LOC: M CARPUL 13:21
PROVIDERS: ATTEND Nurse Practitioner Family
DX: G47.33 Obstructive sleep apnea (adult) (pediatric) (principal)
CPT/HCPCS: 94070; J7674

== ENCOUNTER → 2022-02-27 | Outpatient (CLI) | payer OTHER ==
[~2022-02-27] MED LIST changes: -METHACHOLINE KIT (J7674) INH ONE
== END ==
LOC: M WUC 15:26
PROVIDERS: ATTEND Nurse Practitioner Family
DX: R06.00 Dyspnea, unspecified (principal)

== ENCOUNTER 2022-04-26 09:56 | Day surgery (SDC) | payer OTHER ==
[~2022-04-26] VITALS: Ht 165.1 cm; Wt 78.0 kg
[~2022-04-26 09:56] MED LIST changes: +AMIT8CAP4 PO; +CLOP75TA2 PO; +DILT60CASR PO; +FAMO40TA3 PO; +FLUD0.1T PO; +LIDO5DIS41 TD; +MESA50SU PR; +METO1TAB87 PO; +NEUR300C PO; +NS 1,000 ML IV ONE; +PANT40TA29 PO; +SUCR1TA PO
[2022-04-26] MEDS ORDERED: propofoL 200 MG/20 ML VIAL As Ordered ONE (10:33)
[2022-04-26] MEDS ORDERED: fentaNYL 100 MCG/2 ML INJECTION As Ordered ONE (10:33)
[2022-04-26] MEDS ORDERED: LIDOCAINE 2% 100MG/5ML SDV (FOR ANES.) As Ordered ONE (10:33)
[2022-04-26 12:10] VITALS: BP 137/72
== END 2022-04-26 12:20 | disposition home or self-care (01) ==
LOC: M OPP 09:56
PROVIDERS: ATTEND Internal Medicine Gastroenterology
DX: Z12.11 Encounter for screening for malignant neoplasm of colon (principal); K57.30 Diverticulosis of large intestine without perforation or abscess without bleeding; K64.0 First degree hemorrhoids; K62.5 Hemorrhage of anus and rectum; K44.9 Diaphragmatic hernia without obstruction or gangrene; K22.89 Other specified disease of esophagus; I20.1 Angina pectoris with documented spasm; F32.9 Major depressive disorder, single episode, unspecified; M79.7 Fibromyalgia; I48.91 Unspecified atrial fibrillation; Z79.02 Long term (current) use of antithrombotics/antiplatelets; Z79.1 Long term (current) use of non-steroidal anti-inflammatories (NSAID); Z79.51 Long term (current) use of inhaled steroids; Z79.899 Other long term (current) drug therapy; Z88.5 Allergy status to narcotic agent; Z88.8 Allergy status to other drugs, medicaments and biological substances; Z91.018 Allergy to other foods; Z91.040 Latex allergy status; Z87.891 Personal history of nicotine dependence
CPT/HCPCS: 43239; 45378; 88305; J3010

== ENCOUNTER → 2022-05-21 | Outpatient (CLI) | payer OTHER ==
[~2022-05-21] MED LIST changes: +ATOR1TAB19 PO; +EPIP0.3I2 IM; -NS 1,000 ML IV ONE; +VENL150C43 PO
== END ==
LOC: M EKG 14:55
PROVIDERS: ATTEND Anesthesiology
DX: Z01.818 Encounter for other preprocedural examination (principal)

== ENCOUNTER 2022-05-28 08:46 | Day surgery (SDC) | payer OTHER ==
[~2022-05-28] VITALS: Ht 165.1 cm; Wt 79.6 kg
[2022-05-28] MEDS ORDERED: LR 1,000 ML IV SCH ×3 (09:25→13:15)
[2022-05-28] MEDS ORDERED: LIDOCAINE W/EPINEPHRINE 1% 20ML VIAL As Ordered ONE (10:44)
[2022-05-28] MEDS ORDERED: COCAINE 4% 4ML NASAL SOLUTION BTL As Ordered ONE (10:44)
[2022-05-28] MEDS ORDERED: OXYMETAZOLINE 0.05% NASAL SPRAY (AFRIN) As Ordered ONE (10:45)
[2022-05-28] MEDS ORDERED: SUGAMMADEX SODIUM 500 MG/5 ML VIAL (BRIDION) As Ordered ONE (11:29)
[2022-05-28] MEDS ORDERED: LIDOCAINE 2% 100MG/5ML SDV (FOR ANES.) As Ordered ONE (11:29)
[2022-05-28] MEDS ORDERED: MIDAZOLAM INJ 2MG/2ML VIAL (J2250 PER 1MG) As Ordered ONE (11:29)
[2022-05-28] MEDS ORDERED: propofoL 200 MG/20 ML VIAL As Ordered ONE (11:29)
[2022-05-28] MEDS ORDERED: dexameTHASONE 4 MG/ML 1ML VIAL (J1100 PER 1MG) As Ordered ONE (11:29)
[2022-05-28] MEDS ORDERED: ONDANSETRON 4MG 2ML VIAL As Ordered ONE (11:29)
[2022-05-28] MEDS ORDERED: fentaNYL 100 MCG/2 ML INJECTION As Ordered ONE (11:30)
[2022-05-28] MEDS ORDERED: METOCLOPRAMIDE INJ 10MG/2ML VIAL (J2765 PER 1) As Ordered ONE (11:33)
[2022-05-28] MEDS ORDERED: ePHEDrine SULFATE 25 MG/5 ML(5MG/ML) SYRINGE As Ordered ONE (12:00)
[2022-05-28] MEDS ORDERED: GLYCOPYRROLATE INJ 0.2 MG/ML 2 ML VIAL As Ordered ONE (12:15)
[2022-05-28] MEDS ORDERED: PHENYLephrine 500MCG 5ML (100MCG/ML) SYRINGE As Ordered ONE (12:15)
[2022-05-28] MEDS ORDERED: MEPERIDINE INJ 25 MG/ML VIAL (J2175) IV PRN (13:00)
[2022-05-28] MEDS ORDERED: ONDANSETRON 4MG 2ML VIAL IV PRN ×2 (13:00→13:15)
[2022-05-28] MEDS ORDERED: PERCOCET 5MG/325MG TAB PO PRN (13:00)
[2022-05-28] MEDS ORDERED: HYDROMORPHONE HCL 0.5 MG/ 0.5 ML SYRINGE (J1170 PER 1) IV PRN (13:00)
[2022-05-28] MEDS ORDERED: fentaNYL 100 MCG/2 ML INJECTION IV PRN (13:00)
[2022-05-28] MEDS ORDERED: MORPHINE 10 MG/ML 1ML VIAL IV PRN (13:15)
[2022-05-28] MEDS ORDERED: ANEXSIA, NORCO 7.5MG/325MG TABLET(HYDROCODONE/APAP) PO PRN (13:15)
[2022-05-28 14:30] VITALS: BP 121/59
== END 2022-05-28 14:42 | disposition home or self-care (01) ==
LOC: M SDC 08:46
PROVIDERS: ATTEND Otolaryngology
DX: J34.2 Deviated nasal septum (principal); J34.3 Hypertrophy of nasal turbinates; I25.2 Old myocardial infarction; K44.9 Diaphragmatic hernia without obstruction or gangrene; K21.9 Gastro-esophageal reflux disease without esophagitis; G40.909 Epilepsy, unspecified, not intractable, without status epilepticus; F41.9 Anxiety disorder, unspecified; Z85.41 Personal history of malignant neoplasm of cervix uteri; Z92.21 Personal history of antineoplastic chemotherapy; E55.9 Vitamin D deficiency, unspecified; Z79.02 Long term (current) use of antithrombotics/antiplatelets; Z79.899 Other long term (current) drug therapy; Z86.718 Personal history of other venous thrombosis and embolism; Z88.5 Allergy status to narcotic agent; Z91.040 Latex allergy status; Z91.018 Allergy to other foods
CPT/HCPCS: 30140; 30520; C9046; J1100; J2250; J2370; J2405; J2765; J3010

== ENCOUNTER 2022-07-25 06:19 | Day surgery (SDC) | payer OTHER ==
[2022-07-25] VITALS (7 sets, daily range): BP systolic 122–143; BP diastolic 66–82
[~2022-07-25] VITALS: Ht 165.1 cm; Wt 77.1 kg
[~2022-07-25 06:19] MED LIST changes: +VENL75CA47 PO
[2022-07-25] MEDS ORDERED: LR 1,000 ML IV SCH ×3 (06:30→10:35)
[2022-07-25 06:53] LABS: HEMATOCRIT 33.2 % (36.0-47.0); HEMOGLOBIN 10.2 g/dl (12.0-15.5); MEAN CORPUSCULAR HEMOGLOBIN 25.6 pg (27.0-33.0); MEAN CORPUSCULAR HGB CONC 30.7 g/dl (32.0-36.5); MEAN CORPUSCULAR VOLUME 83.4 fl (80.0-96.0); PLATELET COUNT, AUTOMATED 331 10^3/uL (150-450); RED BLOOD COUNT 3.98 10^6/uL (4.00-5.40); WHITE BLOOD COUNT 3.1 10^3/uL (4.0-10.0)
[2022-07-25] MEDS ORDERED: TIZA10TA PO (07:06)
[2022-07-25 07:09] LABS: INR 0.91; PROTHROMBIN TIME 12.5 SECONDS (12.5-14.5)
[2022-07-25 07:10] LABS: PARTIAL THROMBOPLASTIN TIME 29.2 SECONDS (24.8-34.2)
[2022-07-25] MEDS ORDERED: fentaNYL 100 MCG/2 ML INJECTION As Ordered ONE ×2 (07:10→09:26)
[2022-07-25] MEDS ORDERED: ROCURONIUM BROMIDE 50 MG/5 ML VIAL As Ordered ONE ×2 (07:10→08:47)
[2022-07-25] MEDS ORDERED: BUPIVACAINE HCL 0.25% 30ML VIAL As Ordered ONE (07:10)
[2022-07-25] MEDS ORDERED: LIDOCAINE 2% 100MG/5ML SDV (FOR ANES.) As Ordered ONE (07:10)
[2022-07-25] MEDS ORDERED: propofoL 200 MG/20 ML VIAL As Ordered ONE (07:10)
[2022-07-25] MEDS ORDERED: dexameTHASONE 4 MG/ML 1ML VIAL (J1100 PER 1MG) As Ordered ONE (07:10)
[2022-07-25] MEDS ORDERED: ONDANSETRON 4MG 2ML VIAL As Ordered ONE (07:10)
[2022-07-25] MEDS ORDERED: MIDAZOLAM INJ 2MG/2ML VIAL (J2250 PER 1MG) As Ordered ONE (07:10)
[2022-07-25] MEDS ORDERED: METHYLENE BLUE 0.5% (5MG/ML) 10 ML AMP (PROVAYBLUE) As Ordered ONE (07:11)
[2022-07-25] MEDS ORDERED: ceFAZolin 2 GM/D5W 50 ML IV BAG (J0690 PER 500MG) As Ordered ONE (07:37)
[2022-07-25] MEDS ORDERED: diphenhydrAMINE 50MG/ML VIAL (J1200) As Ordered ONE (07:47)
[2022-07-25] MEDS ORDERED: ACETAMINOPHEN *IV* 1,000 MG IV ONE ×2 (08:00)
[2022-07-25] MEDS ORDERED: ceFAZolin SOD 2 GM in IV 1 EA IV ONE (08:00)
[2022-07-25] MEDS ORDERED: ACETAMINOPHEN 1000MG 100ML IV BTL (OFIRMEV) (J0131 PER 10MG) As Ordered ONE (08:07)
[2022-07-25] MEDS ORDERED: ePHEDrine SULFATE 25 MG/5 ML(5MG/ML) SYRINGE As Ordered ONE (08:47)
[2022-07-25] MEDS ORDERED: PHENYLephrine 500MCG 5ML (100MCG/ML) SYRINGE As Ordered ONE ×2 (08:47→10:01)
[2022-07-25] MEDS ORDERED: SUGAMMADEX SODIUM 500 MG/5 ML VIAL (BRIDION) As Ordered ONE (08:49)
[2022-07-25] MEDS ORDERED: ONDANSETRON 4MG 2ML VIAL IV PRN ×2 (10:10→10:35)
[2022-07-25] MEDS ORDERED: HYDROMORPHONE HCL 0.5 MG/ 0.5 ML SYRINGE (J1170 PER 1) IV PRN (10:10)
[2022-07-25] MEDS ORDERED: NORCO, ANEXSIA 5/325MG TABLET (HYDROcodone/ACETAMINOPHEN) PO PRN (10:10)
[2022-07-25] MEDS ORDERED: METOCLOPRAMIDE INJ 10MG/2ML VIAL (J2765 PER 1) IV PRN (10:10)
[2022-07-25] MEDS ORDERED: PROMETHAZINE 25 MG TAB PO PRN (10:35)
[2022-07-25] MEDS ORDERED: SIMETHICONE 80MG CHEW TAB PO PRN (10:35)
[2022-07-25] MEDS: fentaNYL 100 MCG/2 ML INJECTION IV PRN ×4 (10:56→11:11)
[2022-07-25] MEDS: oxyCODONE 5MG TAB PO PRN ×3 (12:13→18:43)
[2022-07-25] MEDS ORDERED: DILT1TAB12 PO (14:51)
[2022-07-25] MEDS ORDERED: HOME MED LIST COMPLETE! XX SCH (14:55)
[2022-07-25] MEDS: ACETAMINOPHEN 500 MG TAB PO SCH ×3 (15:34→23:04)
[2022-07-25] MEDS: GABAPENTIN 300 MG CAP PO SCH ×2 (15:34→20:21)
[2022-07-25] MEDS: ENOXAPARIN 40MG/0.4ML SYRINGE (J1650 PER 10MG) SC SCH (15:34)
[2022-07-25] MEDS ORDERED: MORPHINE 2 MG/ML 1ML VIAL IV PRN ×2 (16:10→16:45)
[2022-07-25] MEDS: KETOROLAC 30 MG/ML 1ML VIAL IV SCH ×2 (16:22→23:03)
[2022-07-25] MEDS: FLECAINIDE 50MG TABLET PO SCH (20:21)
[2022-07-25] MEDS: PANTOPRAZOLE 40MG TAB (PROTONIX) PO SCH (20:21)
[2022-07-25] MEDS: lamoTRIgine 100MG TAB PO SCH (20:21)
[2022-07-25] MEDS: FAMOTIDINE 20 MG TAB PO SCH (20:21)
[2022-07-25] MEDS ORDERED: VENLAFAXINE **XR** 75MG CAPSULE PO SCH (21:00)
[2022-07-26] MEDS: oxyCODONE 5MG TAB PO PRN ×3 (03:08→16:32)
[2022-07-26] MEDS: ACETAMINOPHEN 500 MG TAB PO SCH ×2 (05:35→13:25)
[2022-07-26 06:17] LABS: HEMATOCRIT 29.7 % (36.0-47.0); HEMOGLOBIN 9.3 g/dl (12.0-15.5); MEAN CORPUSCULAR HGB CONC 31.3 g/dl (32.0-36.5); PLATELET COUNT, AUTOMATED 383 10^3/uL (150-450); RED BLOOD COUNT 3.58 10^6/uL (4.00-5.40); WHITE BLOOD COUNT 9.2 10^3/uL (4.0-10.0)
[2022-07-26] MEDS ORDERED: MESALAMINE 1.2 GM PO SCH (08:00)
[2022-07-26] MEDS: GABAPENTIN 300 MG CAP PO SCH ×2 (08:47→16:33)
[2022-07-26] MEDS: PANTOPRAZOLE 40MG TAB (PROTONIX) PO SCH (08:47)
[2022-07-26] MEDS: lamoTRIgine 100MG TAB PO SCH (08:47)
[2022-07-26] MEDS: FAMOTIDINE 20 MG TAB PO SCH (08:48)
[2022-07-26] MEDS ORDERED: ATORVASTATIN 10 MG TAB PO SCH (09:00)
[2022-07-26] MEDS ORDERED: MESALAMINE 400 MG CAPSULE DELAYED RELEASE (DELZICOL) PO SCH (09:00)
[2022-07-26 10:39] VITALS: BP 113/68
[2022-07-26 10:47] VITALS: BP 113/68
[2022-07-26] MEDS: FLECAINIDE 50MG TABLET PO SCH (11:25)
[2022-07-26 15:00] VITALS: BP 106/55
[2022-07-26] MEDS ORDERED: GABA-282 PO (16:25)
[2022-07-26] MEDS ORDERED: ACET-683 PO (16:25)
[2022-07-26] MEDS ORDERED: OXYC-517 PO (16:25)
[2022-07-26] MEDS: ENOXAPARIN 40MG/0.4ML SYRINGE (J1650 PER 10MG) SC SCH (16:32)
== END 2022-07-26 17:37 | disposition home or self-care (01) ==
LOC: M SDC 06:19 → M MSPAV 13:52 → M SDC 07-26 17:37
PROVIDERS: ATTEND Obstetrics & Gynecology
DX: N93.9 Abnormal uterine and vaginal bleeding, unspecified (principal); D25.2 Subserosal leiomyoma of uterus; N80.00 Endometriosis of the uterus, unspecified; Z88.5 Allergy status to narcotic agent; Z86.001 Personal history of in-situ neoplasm of cervix uteri; Z91.040 Latex allergy status; Z91.018 Allergy to other foods; Z91.010 Allergy to peanuts
CPT/HCPCS: 36415; 58150; 85027; 85610; 85730; 88307; 93005; 96361; 96372; 96374; 96375; 96376; J0131; J0690; J1100; J1170; J1200; J1650; J1885; J2250; J2370; J2405; J3010

== ENCOUNTER → 2022-08-03 | Outpatient (REF) | payer OTHER ==
[~2022-08-03] MED LIST changes: +ACET-683 PO; +DILT1TAB12 PO; +GABA-282 PO; +OXYC-517 PO; +TIZA10TA PO
[2022-08-03 18:07] LABS: APPEARANCE, URINE MANUAL CLOUDY (CLEAR); COLOR, URINE MANUAL YELLOW (YELLOW)
[2022-08-03 18:09] LABS: BILIRUBIN, URINE MANUAL NEGATIVE (NEGATIVE); BLOOD URINE MANUAL POSITIVE (NEGATIVE); GLUCOSE, URINE (UA) MANUAL NEGATIVE (NEGATIVE); KETONE, URINE MANUAL NEGATIVE (NEGATIVE); LEUKOCYTE ESTERASE, URINE MAN TRACE (NEGATIVE); NITRITE, URINE MANUAL NEGATIVE (NEGATIVE); PH,URINE MAN 6.5 UNITS (5.0 - 7.0); PROTEIN, URINE MANUAL TRACE mg/dL (NEGATIVE); SPECIFIC GRAVITY,URINE MANUAL 1.015 (1.002-1.035); UROBILINOGEN, URINE MANUAL NORMAL (NORMAL)
[2022-08-03 18:25] LABS: BACTERIA, URINE SMALL AMOUNT; HYALINE CAST, URINE NONE SEEN /lpf (0-1); MUCUS, URINE LARGE AMOUNT (NEGATIVE); RBC, URINE 20-30 /hpf (0-3); SQUAMOUS EPITHELIAL CELL URINE SMALL AMOUNT /hpf (SMALL AMT)
== END ==
LOC: M LAB REF 17:23
PROVIDERS: ATTEND Physician Assistant Medical
DX: N39.0 Urinary tract infection, site not specified (principal)

== ENCOUNTER → 2022-08-15 | Outpatient (REF) | payer OTHER ==
[2022-08-15 12:51] LABS: APPEARANCE, URINE MANUAL CLEAR (CLEAR); BILIRUBIN, URINE MANUAL NEGATIVE (NEGATIVE); BLOOD URINE MANUAL TRACE (NEGATIVE); COLOR, URINE MANUAL YELLOW (YELLOW); GLUCOSE, URINE (UA) MANUAL NEGATIVE (NEGATIVE); KETONE, URINE MANUAL NEGATIVE (NEGATIVE); LEUKOCYTE ESTERASE, URINE MAN NEGATIVE (NEGATIVE); NITRITE, URINE MANUAL NEGATIVE (NEGATIVE); PROTEIN, URINE MANUAL NEGATIVE (NEGATIVE); UROBILINOGEN, URINE MANUAL NORMAL (NORMAL)
[2022-08-15 12:57] LABS: BACTERIA, URINE NONE SEEN; HYALINE CAST, URINE NONE SEEN /lpf (0-1); SQUAMOUS EPITHELIAL CELL URINE SMALL AMOUNT /hpf (SMALL AMT); WBC, URINE 0-1 /hpf (0-3)
[2022-08-15 12:58] LABS: AMORPHOUS SEDIMENT, URINE SMALL AMOUNT (NEGATIVE)
== END ==
LOC: M LAB REF 11:31
PROVIDERS: ATTEND Physician Assistant
DX: N39.0 Urinary tract infection, site not specified (principal)

== ENCOUNTER → 2022-08-21 | Outpatient (CLI) | payer OTHER ==
[~2022-08-21] MED LIST changes: +ISOVUE-370 76% 100ML VIAL As Ordered ONE
== END ==
LOC: M RAD 07:50
PROVIDERS: ATTEND Otolaryngology
DX: M54.2 Cervicalgia (principal)

== ENCOUNTER → 2022-08-26 | Outpatient (CLI) | payer OTHER ==
[~2022-08-26] MED LIST changes: -ISOVUE-370 76% 100ML VIAL As Ordered ONE
== END ==
LOC: M RAD 14:24
PROVIDERS: ATTEND Neurological Surgery
DX: I67.1 Cerebral aneurysm, nonruptured (principal)